=== PATIENT | male | born 1945 | race Caucasian/White ===

== ENCOUNTER 2017-03-22 11:19 | Outpatient (CLI) | payer MEDICARE ==
[~2017-03-22] VITALS: Ht 177.8 cm; Wt 115.2 kg
[~2017-03-22 11:19] MED LIST: AC325T PO; ALPR.25T PO; AMLO10TA2 PO; AMLO10TA82 PO; AMLO5TAB2 PO; ASP81TEC PO; ASPI-999 PO; CIPR-17 PO; CLOP75TA PO; CYCL10TA9 PO; FLEXERIL PO; FURO20TA4 PO; HYDR-3583 PO; HYDR-3812 PO; HYDR1TAB PO; IRB150T PO; LISI-556 PO; MELA1TAB11 PO; METO-272 PO; METO100T2 PO; METO200T2 PO; METO50TA2 PO; METO50TA7 PO; METR500T PO; MTP50T PO; MULT-608 PO; NAPR550T PO; NF-ESOM40C PO; NTR.4SL SL; OMG1KC PO; OXYC1TAB16 PO; PNT40TEC PO; RT-COMBINH IH; SIMV40TA4 PO; TRIA1CAP4 PO; TRM50T PO; WARF7.5T PO; WRF5T PO; ZLP10T PO
[2017-03-22 11:27] VITALS: BP 137/89
[2017-03-22] MEDS ORDERED: ASPI-586 PO (11:33)
[2017-03-22] MEDS ORDERED: OMEP40CA36 PO (11:33)
== END 2017-03-22 11:45 | disposition home or self-care (01) ==
LOC: PREOP 11:19
PROVIDERS: ATTEND Orthopaedic Surgery
DX: Z01.818 Encounter for other preprocedural examination (principal); G56.02 Carpal tunnel syndrome, left upper limb; Z11.2 Encounter for screening for other bacterial diseases
CPT/HCPCS: 87081

== ENCOUNTER 2017-03-28 08:21 | Day surgery (SDC) | payer MEDICARE ==
--- NOTE | 2017-03-20 10:30 | HISTORY AND PHYSICAL ---
DATE OF SERVICE: 03/28/2017 REASON FOR ADMISSION: Left carpal tunnel release. HISTORY OF PRESENT ILLNESS: The patient is a 71-year-old right-hand dominant gentleman with complaints of left hand pain and paresthesias. He underwent EMG and nerve conduction studies which revealed evidence of severe carpal tunnel syndrome with denervation of his abductor pollicis brevis. He reports near constant paresthesias. He reports night pain. He reports no improvement with activity modifications. The patient understands carpal tunnel release may not fully alleviate all of his symptoms due to the severity of his findings. REVIEW OF SYSTEMS: No chest pain, no shortness of breath, no dysuria. PAST MEDICAL HISTORY: coronary artery disease, reflux, hypertension. PAST SURGICAL HISTORY: Lumbar, coronary stent placement, coronary artery bypass, pacemaker placement, cataract. FAMILY HISTORY: COPD. PRIMARY CARE PROVIDER: . MEDICATIONS: Omeprazole, metoprolol, amlodipine, furosemide, aspirin, fish oil, simvastatin, clopidogrel and Nitrostat. ALLERGIES: PENICILLIN, SULFA and ALPHAGAN. SOCIAL HISTORY: The patient is a former smoker. Denies alcohol use. PHYSICAL EXAMINATION: GENERAL: The patient is well-developed, well-nourished, in no acute distress. HEENT: Normocephalic, atraumatic. Pupils are equal, round and reactive to light. Oropharynx is clear. NECK: Supple. No lymphadenopathy. LUNGS: Clear to auscultation bilaterally. HEART: Regular rate and rhythm. ABDOMEN: Soft, nontender, nondistended. EXTREMITIES: The left wrist demonstrates a positive Tinel's with carpal tunnel with a positive Phalen's maneuver. He has decreased sensation to light touch in the median distribution with thenar atrophy noted. He has weakness with thumb palmar abduction. IMPRESSION: Severe left carpal tunnel syndrome. PLAN: Left carpal tunnel release. The risks, benefits, options, ramifications and recovery have been discussed at length with the patient. He understands and wishes to proceed. Job ID: [id number] DocumentID: [id number] Dictated Date: 03/20/2017 09:27:06 Fitness Consultant Date: 03/20/2017 10:17:19 Dictated By: ALVIN FORBES MD
[~2017-03-28] VITALS: Ht 177.8 cm; Wt 115.2 kg
[~2017-03-28 08:21] MED LIST changes: +ASPI-586 PO; +OMEP40CA36 PO
[2017-03-28] MEDS ORDERED: LACTATED RINGERS 1,000 ML IV PRN ×2 (08:31→08:43)
[2017-03-28] MEDS ORDERED: CATHETER FLUSH 10 ML SYR IV PRN (09:00)
[2017-03-28] MEDS ORDERED: CLINDAMYCIN 600 MG/NS 50 ML IVPB IV ONE ×2 (09:00)
--- NOTE | 2017-03-28 09:01 | Progress Note-Pre Operative ---
Pre-Operative Progress Note H&P Reviewed The H&P was reviewed, patient examined and no changes noted. Date Seen by Provider: Mar 28, 2017 Time Seen by Provider: 09:00 Date H&P Reviewed: Mar 28, 2017 Time H&P Reviewed: 09:00 Pre-Operative Diagnosis: left carpal tunnel syndrome ALVIN FORBES MD Mar 28, 2017 09:01
--- NOTE | 2017-03-28 09:02 | Progress Note-Post Operative ---
Post-Operative Progess Note Surgeon (s)/Heddler (s) Surgeon ALVIN FORBES MD Heddler: Jaciel Arora Pre-Operative Diagnosis left carpal tunnel syndrome Post-Operative Diagnosis left carpal tunnel syndrome Procedure & Operative Findings Date of Procedure 03/28/17 Procedure Performed/Findings left open carpal tunnel release Anesthesia Type MAC plus local Estimated Blood Loss Estimated blood loss (mL): minimal Specimens/Packing Specimens Removed none Packing: none ALVIN FORBES MD Mar 28, 2017 09:02
[2017-03-28] MEDS ORDERED: HYDROcodone/APAP 7.5 MG/325 MG (LORTAB, LORCET PLUS) TABLET PO PRN (09:15)
[2017-03-28] MEDS ORDERED: LIDOCAINE 1% INJ 20 ML (XYLOCAINE) VIAL ONE (09:18)
[2017-03-28] MEDS ORDERED: BUPIVACAINE 0.5% 30 ML (SENSORCAINE) VIAL ONE (09:18)
[2017-03-28] MEDS ORDERED: proPOfol 200 MG/20 ML (DIPRIVAN) VIAL IV ONE (09:19)
[2017-03-28] MEDS ORDERED: fentaNYL INJECTION 100 MCG/2 ML AMP ONE (09:25)
[2017-03-28] MEDS ORDERED: LIDOCAINE PF 2% 5 ML (XYLOCAINE) VIAL ONE (09:25)
[2017-03-28 09:30] VITALS: BP 148/90
[2017-03-28] MEDS ORDERED: ONDANSETRON 4 MG/2 ML (SDV) Z0FRAN IVP PRN (10:15)
[2017-03-28] MEDS ORDERED: morphine INJ 10 MG/ML 1ML (SYR OR VIAL) IVP PRN (10:15)
[2017-03-28 10:35] VITALS: BP 137/88
[2017-03-28 11:05] VITALS: BP 121/77
[2017-03-28] MEDS ORDERED: HYDR-3816 PO (11:12)
--- NOTE | 2017-03-28 14:08 | OPERATIVE REPORT ---
DATE OF SERVICE: 03/28/2017 PREOPERATIVE DIAGNOSIS: Left carpal tunnel syndrome. POSTOPERATIVE DIAGNOSIS: Left carpal tunnel syndrome. PROCEDURE PERFORMED: Left open carpal tunnel release. SURGEON: Alvin German MD SOLID SURFACE FABRICATOR: RUPALI Hernandez, who assisted throughout the procedure and closed the incision. ANESTHESIA: Monitored anesthesia care plus local by Kermit Slater CRNA. TOURNIQUET TIME: 3 minutes at 250 mmHg. ESTIMATED BLOOD LOSS: Minimal. DRAINS: None. COMPLICATIONS: None. POSTOPERATIVE PLAN: Routine protocol. The patient was transported to the recovery room awake and in stable condition. STATEMENT OF MEDICAL NECESSITY: The patient is a 71-year-old gentleman with complaints of left hand pain and paresthesias. He had positive Tinel's of carpal tunnel and positive Phalen's maneuver. He had decreased sensation in a median distribution with thenar atrophy noted. The patient was counseled that he may not regain full function despite surgical intervention, but due to failure to improve with conservative measures, the patient elected to proceed with surgical intervention. DESCRIPTION OF PROCEDURE: After risks and benefits of the procedure were discussed and questions were answered and informed consent was signed and placed on the chart, the operative site was confirmed in the preoperative holding area and initialed by the surgeon. The patient was then transported to the operating room and after adequate levels of monitored anesthesia care were obtained, a timeout was called confirming the operative site. Under sterile conditions, the incision site was infiltrated with a combination of plain lidocaine and plain Marcaine. With the arm elevated, the tourniquet was inflated to 250 mmHg. A standard incision was made in line with the radial border of the ring finger over the transverse carpal ligament. The underlying soft tissues were sharply dissected. The transverse carpal ligament was identified and sharply incised by pushing through with a scalpel blade while carefully protecting the median nerve. The distal extent was confirmed, fully released with a Tatum. Proximally, the transverse carpal ligament was spread above and below with dissection scissors and then released while protecting median nerve. This was confirmed, fully released with a Tatum. The tourniquet was deflated for a total tourniquet time of 3 minutes. Pressure was used for hemostasis. The wound was copiously irrigated and closed with 4-0 nylon in a running alternating horizontal mattress fashion. A soft dressing and splint were applied, and the patient was transported to the recovery room awake and in stable condition. Job ID: [id number] DocumentID: [id number] Dictated Date: 03/28/2017 10:03:11 Shoder Filler Date: 03/28/2017 14:08:18 Dictated By: ALVIN GERMAN MD
--- OUTSIDE RECORDS SUMMARY | 2017-03-29 18:09 | XMS REPORT | Continuity of Care Document ---
Author Author [facility] Organization [facility] Address Unknown Phone Unavailable Allergies Active Description Code Type Severity Reaction Onset Reported/Identified Relationship to Patient Clinical Status Yes Penicillins [id number] Drug Allergy Moderate N/A 02/28/2011 Yes Sulfa (Sulfonamide Antibiotics) [id number] Drug Allergy Moderate HIVES 02/28/2011 Yes brimonidine tartrate [id number] Drug Allergy Unknown N/A 05/28/2014 Medications Problems Date Dx Coded Attending Type Code Diagnosis Diagnosed By 09/06/1305 LARON HUTCHISON MD Ot Z48.812 09/06/1305 LARON HUTCHISON MD Ot Z95.5 03/01/2011 Ot 272.4 03/01/2011 Ot 327.23 03/01/2011 Ot 365.9 03/01/2011 Ot 401.9 03/01/2011 Ot 412 03/01/2011 Ot 414.01 03/01/2011 Ot 722.52 03/01/2011 Ot V12.72 03/01/2011 Ot V58.78 03/01/2011 Ot V63.8 09/26/2011 Ot 414.01 09/26/2011 Ot 426.13 09/26/2011 Ot 786.50 09/26/2011 Ot V45.82 09/26/2011 Ot V58.63 09/26/2011 Ot V58.66 09/26/2011 Ot V58.69 10/11/2011 Ot 272.4 HYPERLIPIDEMIA NEC/NOS 10/11/2011 Ot 401.9 HYPERTENSION NOS 10/11/2011 Ot 414.01 CORONARY ATHEROSCLEROSIS OF [place] CORON 10/11/2011 Ot 424.0 MITRAL VALVE DISORDER 10/11/2011 Ot 426.11 ATRIOVENT BLOCK-1ST DEGR 10/11/2011 Ot 426.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 10/11/2011 Ot 441.2 THORACIC AORTIC ANEURYSM 10/11/2011 Ot 530.81 ESOPHAGEAL REFLUX 10/11/2011 Ot 786.59 CHEST PAIN NEC 10/11/2011 Ot V15.82 HISTORY OF TOBACCO USE 10/11/2011 Ot V45.82 PERCUTANEOUS TRANSLUM CORON ANGIOPLASTY 10/11/2011 Ot V58.63 LONG-TERM(CURRENT)USE OF ANTIPLATELET/AN 10/11/2011 Ot V58.66 LONG-TERM (CURRENT) USE OF ASPIRIN 10/11/2011 Ot V58.69 OTH MED,LT,CURRENT USE 01/08/2012 Ot 272.4 HYPERLIPIDEMIA NEC/NOS 01/08/2012 Ot 401.9 HYPERTENSION NOS 01/08/2012 Ot 414.00 CORON ATHEROSCLER NOS TYPE VESSEL, NATIV 01/08/2012 Ot 427.89 CARDIAC DYSRHYTHMIAS NEC 01/08/2012 Ot 433.10 CAROTID ARTERY OCCLUSION W O CEREBRAL IN 01/08/2012 Ot 530.81 ESOPHAGEAL REFLUX 01/08/2012 Ot 998.31 DISRUPTION OF INTERNAL OPERATION (SURGIC 01/08/2012 Ot V12.51 HX-VENOUS THROMBOSIS EMBOLISM 01/08/2012 Ot V12.55 PERSONAL HISTORY OF PULMONARY EMBOLISM 01/08/2012 Ot V45.81 AORTOCORONARY BYPASS 01/16/2012 Ot 272.4 HYPERLIPIDEMIA NEC/NOS 01/16/2012 Ot 401.9 HYPERTENSION NOS 01/16/2012 Ot 414.00 CORON ATHEROSCLER NOS TYPE VESSEL, NATIV 01/16/2012 Ot 785.1 PALPITATIONS 01/16/2012 Ot 786.50 CHEST PAIN NOS 01/16/2012 Ot 789.59 OTHER ASCITES 01/16/2012 Ot V45.01 CARDIAC PACEMAKER IN SITU 01/16/2012 Ot V45.81 AORTOCORONARY BYPASS 01/16/2012 Ot V58.61 ANTICOAGULANTS,LT,CURRENT USE 01/16/2012 Ot V58.69 OTH MED,LT,CURRENT USE 03/21/2012 Ot V45.81 AORTOCORONARY BYPASS 03/21/2012 Ot V57.89 REHABILITATION PROC NEC 05/03/2012 Ot 524.60 TEMPOROMANDIBULAR JOINT DISORDERS, UNSPE 05/03/2012 Ot 784.92 JAW PAIN 05/10/2012 Ot V45.81 AORTOCORONARY BYPASS 05/10/2012 Ot V57.89 REHABILITATION PROC NEC 06/09/2014 HILLARY PACHECO FACC, SILVIA PRITCHARD CCDS Ot 272.4 HYPERLIPIDEMIA NEC/NOS 06/09/2014 HILLARY PACHECO FACC, ALI FACP CCDS Ot 414.01 CORONARY ATHEROSCLEROSIS OF [place] [address] CORON 06/09/2014 HILLARY PACHECO FACC, ALI FACP CCDS Ot 414.02 CORON ATHEROSCLEROSIS AUTOLOG VEIN BYPAS 06/09/2014 SILVIA THORNTON MD, FACC FACP CCDS Ot 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 06/09/2014 SILVIA THORNTON MD, FACC FACP CCDS Ot 414.4 CORONARY ATHEROSCLEROSIS DUE TO [place] 06/09/2014 SILVIA THORNTON MD, FACC FACP CCDS Ot 780.79 OT MALAISE FATIGUE 06/09/2014 SILVIA THORNTON MD, FACC FACP CCDS Ot V45.01 CARDIAC PACEMAKER IN SITU 06/09/2014 SILVIA THORNTON MD, FACC FACP CCDS Ot V45.81 AORTOCORONARY BYPASS 06/09/2014 SILVIA THORNTON MD, FACC FACP CCDS Ot V58.69 OT MED,LT,CURRENT USE 09/01/2015 SILVIA THORNTON MD, FACC FACP CCDS Ot E78.5 HYPERLIPIDEMIA, UNSPECIFIED 09/01/2015 ISLVIA THORNTON MD, FACC FACP CCDS Ot I10 ESSENTIAL (PRIMARY) HYPERTENSION 09/01/2015 SILVIA THORNTON MD, FACC FACP CCDS Ot I25.110 ATHSCL HEART DISEASE OF [place] [address] COR ART W 09/01/2015 SILVIA THORNTON MD, FACC FACP CCDS Ot I25.82 CHRONIC TOTAL OCCLUSION OF CORONARY RHODA 09/01/2015 SILVIA THORNTON MD, FACC FACP CCDS Ot 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 09/01/2015 SILVIA THORNTON MD, FACC FACP CCDS Ot Z86.711 PERSONAL HISTORY OF PULMONARY EMBOLISM 09/01/2015 HILLARY PACHECO FACC, ALI FACP CCDS Ot Z95.0 PRESENCE OF CARDIAC PACEMAKER 09/01/2015 HILLARY PACHECO FACC, ALI FACP CCDS Ot Z95.1 PRESENCE OF AORTOCORONARY BYPASS GRAFT 11/03/2015 LARON HUTCHISON MD Ot Z48.812 11/03/2015 LARON HUTCHISON MD Ot Z95.5 11/04/2015 LARON HUTCHISON MD Ot Z48.812 11/04/2015 LARON HUTCHISON MD Ot Z95.5 12/23/2015 LARON HUTCHISON MD Ot Z48.812 ENCNTR FOR SURGICAL AFTCR FOLLOWING SURG 12/23/2015 FOSTER PACHECO, LARON Mora Ot Z95.5 PRESENCE OF CORONARY ANGIOPLASTY IMPLANT 12/24/2015 FOSTER PACHECO, LARON Mora Ot Z48.812 12/24/2015 FOSTER PACHECO, LARON Mora Ot Z95.5 12/24/2015 FOSTER PACHECO, LARON Mora Ot Z48.812 12/24/2015 LARON HUTCHISON MD Ot Z95.5 12/24/2015 Ot 414.01 12/24/2015 Ot 786.50 12/24/2015 Ot V58.63 12/24/2015 Ot V58.66 12/24/2015 Ot V58.69 12/24/2015 Ot V72.63 12/24/2015 Ot V72.81 12/24/2015 Ot V45.81 12/24/2015 Ot V57.89 12/24/2015 GIOVANNA CARRILLO ELEVATOR ERECTOR HELPER Ot 401.9 12/24/2015 GIOVANNA CARRILLO ELEVATOR ERECTOR HELPER Ot 414.00 12/24/2015 GIOVANNA CARRILLO L ELEVATOR ERECTOR HELPER Ot 424.1 12/24/2015 GIOVANNA CARRILLO L ELEVATOR ERECTOR HELPER Ot 441.2 12/24/2015 GIOVANNA CARRILLO ELEVATOR ERECTOR HELPER Ot V45.01 12/24/2015 HILLARY PACHECO FACC, ALI FACP CCDS Ot 272.4 12/24/2015 HILLARY PACHECO FACC, ALI FACP CCDS Ot 401.9 12/24/2015 HILLARY PACHECO FACC, ALI FACP CCDS Ot 414.00 12/24/2015 HILLARY PACHECO FACC, ALI FACP CCDS Ot 426.11 12/24/2015 HILLARY PACHECO FACC, ALI FACP CCDS Ot 426.52 12/24/2015 HILLARY PACHECO FACC, ALI FACP CCDS Ot 429.3 12/24/2015 HILLARY PACHECO FACC, ALI FACP CCDS Ot 441.2 12/24/2015 HILLARY PACHECO FACC, ALI FACP CCDS Ot V45.01 12/24/2015 LARON HUTCHISON MD Ot Z48.812 12/24/2015 LARON HUTCHISON MD Ot Z95.5 12/24/2015 LARON HUTCHISON MD Ot Z48.812 12/24/2015 FOSTER PACHECO, LARON Mora Ot Z95.5 12/29/2015 FOSTER PACHECO, LARON Mora Ot Z48.812 12/29/2015 FOSTER PACHECO, LARON Mora Ot Z95.5 01/04/2016 FOSTER PACHECO, LARON Mora Ot Z48.812 01/04/2016 LARON HUTCHISON MD Ot Z95.5 01/12/2016 LARON HUTCHISON MD Ot Z48.812 ENCNTR FOR SURGICAL AFTCR FOLLOWING SURG 01/12/2016 FOSTER PACHECO, LARON Mora Ot Z95.5 PRESENCE OF CORONARY ANGIOPLASTY IMPLANT 01/14/2016 GERARDO GIOVANNA L ELEVATOR ERECTOR HELPER Ot E78.4 01/14/2016 BAISTAN GIOVANNA L ELEVATOR ERECTOR HELPER Ot I25.10 01/14/2016 BAIMA, GIOVANNA L ELEVATOR ERECTOR HELPER Ot I35.8 01/14/2016 BAIMA, GIOVANNA L ELEVATOR ERECTOR HELPER Ot I71.2 02/02/2016 BAIMA, GIOVANNA L ELEVATOR ERECTOR HELPER Ot E78.4 OTHER HYPERLIPIDEMIA 02/02/2016 BAIMA GIOVANNA L ELEVATOR ERECTOR HELPER Ot I25.10 ATHSCL HEART DISEASE OF [place] CORONARY 02/02/2016 BAIMA, GIOVANNA L ELEVATOR ERECTOR HELPER Ot I35.8 OTHER NONRHEUMATIC AORTIC VALVE DISORDER 02/02/2016 BAIMA, GIOVANNA L ELEVATOR ERECTOR HELPER Ot I71.2 THORACIC AORTIC ANEURYSM, WITHOUT RUPTUR 02/09/2016 BAIMA, GIOVANNA L ELEVATOR ERECTOR HELPER Ot E78.4 OTHER HYPERLIPIDEMIA 02/09/2016 BAIMA, GIOVANNA L ELEVATOR ERECTOR HELPER Ot I25.10 ATHSCL HEART DISEASE OF [place] [address] CORONARY 02/09/2016 BAIMA GIOVANNA L ELEVATOR ERECTOR HELPER Ot I35.8 OTHER NONRHEUMATIC AORTIC VALVE DISORDER 02/09/2016 BAIMA, GIOVANNA L ELEVATOR ERECTOR HELPER Ot I71.2 THORACIC AORTIC ANEURYSM, WITHOUT RUPTUR 02/16/2016 BAIMA, GIOVANNA L ELEVATOR ERECTOR HELPER Ot E78.4 OTHER HYPERLIPIDEMIA 02/16/2016 BAIMA, GIOVANNA L ELEVATOR ERECTOR HELPER Ot I10 ESSENTIAL (PRIMARY) HYPERTENSION 02/16/2016 BAIMA, GIOVANNA L ELEVATOR ERECTOR HELPER Ot I25.10 ATHSCL HEART DISEASE OF [place] [address] CORONARY 02/16/2016 BAIMA GIOVANNA L ELEVATOR ERECTOR HELPER Ot I71.2 THORACIC AORTIC ANEURYSM, WITHOUT RUPTUR 02/16/2016 BAIMA, GIOVANNA L ELEVATOR ERECTOR HELPER Ot R07.9 CHEST PAIN, UNSPECIFIED 02/16/2016 BAIMA, GIOVANNA L ELEVATOR ERECTOR HELPER Ot Z95.0 PRESENCE OF CARDIAC PACEMAKER 03/15/2016 BAIMA, GIOVANNA L ELEVATOR ERECTOR HELPER Ot E78.4 OTHER HYPERLIPIDEMIA 03/15/2016 BAIMA, GIOVANNA L ELEVATOR ERECTOR HELPER Ot I10 ESSENTIAL (PRIMARY) HYPERTENSION 03/15/2016 BAIMA, GIOVANNA L ELEVATOR ERECTOR HELPER Ot I25.10 ATHSCL HEART DISEASE OF [place] [address] CORONARY 03/15/2016 BAIMA, GIOVANNA L ELEVATOR ERECTOR HELPER Ot I71.2 THORACIC AORTIC ANEURYSM, WITHOUT RUPTUR 03/15/2016 BAIMA, GIOVANNA L ELEVATOR ERECTOR HELPER Ot R07.9 CHEST PAIN, UNSPECIFIED 03/15/2016 BAIMA, GIOVANNA L ELEVATOR ERECTOR HELPER Ot Z95.0 PRESENCE OF CARDIAC PACEMAKER 03/17/2016 BAIMA, GIOVANNA L ELEVATOR ERECTOR HELPER Ot E78.4 OTHER HYPERLIPIDEMIA 03/17/2016 BAIMA, GIOVANNA L ELEVATOR ERECTOR HELPER Ot I10 ESSENTIAL (PRIMARY) HYPERTENSION 03/17/2016 BAIMA, GIOVANNA L ELEVATOR ERECTOR HELPER Ot I25.10 ATHSCL HEART DISEASE OF [place] [address] CORONARY 03/17/2016 BAIMA, GIOVANNA L ELEVATOR ERECTOR HELPER Ot I71.2 THORACIC AORTIC ANEURYSM, WITHOUT RUPTUR 03/17/2016 BAIMA, GIOVANNA L ELEVATOR ERECTOR HELPER Ot R07.9 CHEST PAIN, UNSPECIFIED 03/17/2016 BAIMA, GIOVANNA L ELEVATOR ERECTOR HELPER Ot Z95.0 PRESENCE OF CARDIAC PACEMAKER 03/22/2017 Ot V45.81 AORTOCORONARY BYPASS 03/22/2017 Ot V57.89 REHABILITATION PROC NEC 03/22/2017 BAIMA, GIOVANNA L ELEVATOR ERECTOR HELPER Ot 401.9 HYPERTENSION NOS 03/22/2017 BAIMA, GIOVANNA L ELEVATOR ERECTOR HELPER Ot 414.00 CORON ATHEROSCLER NOS TYPE VESSEL, NATIV 03/22/2017 BAIMA, GIOVANNA L ELEVATOR ERECTOR HELPER Ot 424.1 AORTIC VALVE DISORDER 03/22/2017 BAIMA, GIOVANNA L ELEVATOR ERECTOR HELPER Ot 441.2 THORACIC AORTIC ANEURYSM 03/22/2017 BAIMA, GIOVANNA L ELEVATOR ERECTOR HELPER Ot V45.01 CARDIAC PACEMAKER IN SITU 03/22/2017 HILLARY PACHECO FACC, SILVIA PRITCHARD CCDS Ot 272.4 HYPERLIPIDEMIA NEC/NOS 03/22/2017 HILLARY PACHECO FACC, SILVIA JONESP CCDS Ot 401.9 HYPERTENSION NOS 03/22/2017 HILLARY PACHECO FACC, ALI FACP CCDS Ot 414.00 CORON ATHEROSCLER NOS TYPE VESSEL, NATIV 03/22/2017 HILLARY PACHECO FACC, SILVIA FACP CCDS Ot 426.11 ATRIOVENT BLOCK-1ST DEGR 03/22/2017 HILLARY PAHCECO FACC, SILVIA FACP CCDS Ot 426.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 03/22/2017 HILLARY PACHECO FACC, ALI FACP CCDS Ot 429.3 CARDIOMEGALY 03/22/2017 HILLARY PACHECO FACC, SILVIA FACP CCDS Ot 441.2 THORACIC AORTIC ANEURYSM 03/22/2017 HILLARY PACHECO FACC, SILVIA FACP CCDS Ot V45.01 CARDIAC PACEMAKER IN SITU 03/22/2017 BAIMA, GIOVANNA L ELEVATOR ERECTOR HELPER Ot E78.4 OTHER HYPERLIPIDEMIA 03/22/2017 BAIMA, GIOVANNA L ELEVATOR ERECTOR HELPER Ot I25.10 ATHSCL HEART DISEASE OF [place] [address] CORONARY 03/22/2017 BAIMA, GIOVANNA L ELEVATOR ERECTOR HELPER Ot I35.8 OTHER NONRHEUMATIC AORTIC VALVE DISORDER 03/22/2017 BAIMA, GIOVANNA L ELEVATOR ERECTOR HELPER Ot I71.2 THORACIC AORTIC ANEURYSM, WITHOUT RUPTUR 03/22/2017 BAIMA, GIOVANNA L ELEVATOR ERECTOR HELPER Ot E78.4 OTHER HYPERLIPIDEMIA 03/22/2017 BAIMA, GIOVANNA L ELEVATOR ERECTOR HELPER Ot I10 ESSENTIAL (PRIMARY) HYPERTENSION 03/22/2017 BAIMA, GIOVANNA L ELEVATOR ERECTOR HELPER Ot I25.10 ATHSCL HEART DISEASE OF [place] [address] CORONARY 03/22/2017 BAIMA, GIOVANNA L ELEVATOR ERECTOR HELPER Ot I71.2 THORACIC AORTIC ANEURYSM, WITHOUT RUPTUR 03/22/2017 BAIMA, GIOVANNA L ELEVATOR ERECTOR HELPER Ot R07.9 CHEST PAIN, UNSPECIFIED 03/22/2017 BAIMA, GIOVANNA L ELEVATOR ERECTOR HELPER Ot Z95.0 PRESENCE OF CARDIAC PACEMAKER Procedures Results Test Result Range Methicillin resistant Staphylococcus aureus (MRSA) screening culture - 11:46 MRSA SCREEN RESULT MRSA ISOLATED NRG Encounters ACCT No. Visit Date/Time Discharge Status Pt. Type Provider Facility Loc./Unit Complaint [id number] 03/22/2017 11:19:00 2016 11:45:00 DIS Outpatient LEIDY PACHECO, ALVIN [facility] PREOP LEFT CARPAL TUNNEL SYNDROME [id number] 01/12/2016 11:56:00 2015 13:06:00 DIS Outpatient LARON HUTCHISON MD [facility] CR STENT [id number] 12/20/2015 07:56:00 2015 00:01:00 DIS Outpatient LARON HUTCHISON MD [facility] CR STENT [id number] 08/31/2015 09:39:00 2014 11:45:00 DIS Outpatient HILLARY PACHECO FACNa, SILVIA PRITCHARD CCDS [facility] CATH CAD,HTN,HYPERLIPIDEMIA, CHEST PAIN [id number] 06/09/2014 06:53:00 2013 16:30:00 DIS Outpatient HILLARY PACEHCO FACC, SILVIA PRITCHARD CCDS [facility] ABNORMAL STRESS,CAD,HLP [id number] 05/28/2014 07:19:00 2013 23:59:59 CLS Outpatient SILVIA THORNTON MD, FACC, FACP CCDS [facility] CARD CAD,HLP [id number] 04/03/2014 12:30:00 2013 23:59:59 CLS Outpatient BAIMA, GIOVANNA L ELEVATOR ERECTOR HELPER [facility] CARD CAD,HLP, [id number] 03/28/2017 10:30:00 IZABELA FORBES MD, ALVIN [place] [facility] LEFT CARPAL TUNNEL SYNDROME [id number] 02/15/2016 07:18:00 ACT Outpatient BAIMA, GIOVANNA L ELEVATOR ERECTOR HELPER [facility] CARD CHEST PAIN,CAD,CARDIAC PACEMAKER,HLP,LABILE HTN [id number] 01/13/2016 07:21:00 ACT Outpatient BAIMA, GIOVANNA L ELEVATOR ERECTOR HELPER [facility] CARD CAD,AORTIC VALVE SCLEROSIS [id number] 05/10/2012 11:55:00 Document Registration [id number] 05/03/2012 08:02:00 Document Registration [id number] 03/22/2012 08:00:00 Document Registration [id number] 03/18/2012 11:53:00 Document Registration [id number] 01/16/2012 14:58:00 Document Registration [id number] 01/08/2012 10:00:00 Document Registration [id number] 10/11/2011 08:12:00 Document Registration [id number] 09/26/2011 05:29:00 Document Registration [id number] 09/25/2011 08:22:00 Document Registration [id number] 02/27/2011 00:08:00 Document Registration
== END 2017-03-28 11:39 | disposition home or self-care (01) ==
LOC: SDC 08:21
PROVIDERS: ATTEND Orthopaedic Surgery
DX: G56.02 Carpal tunnel syndrome, left upper limb (principal); Z11.2 Encounter for screening for other bacterial diseases; I25.10 Atherosclerotic heart disease of native coronary artery without angina pectoris; K21.9 Gastro-esophageal reflux disease without esophagitis; I10 Essential (primary) hypertension; E78.5 Hyperlipidemia, unspecified; Z95.1 Presence of aortocoronary bypass graft; Z95.0 Presence of cardiac pacemaker; Z95.5 Presence of coronary angioplasty implant and graft; Z79.891 Long term (current) use of opiate analgesic
CPT/HCPCS: 87081

== ENCOUNTER 2017-08-02 08:16 | Outpatient (CLI) | payer MEDICARE ==
[~2017-08-02] VITALS: Ht 177.8 cm; Wt 116.1 kg
[~2017-08-02 08:16] MED LIST changes: +HYDR-3816 PO
[2017-08-02] MEDS ORDERED: CLOP75TA28 PO (08:30)
[2017-08-02] MEDS ORDERED: FURO20TA4 PO (08:30)
[2017-08-02] MEDS ORDERED: OMG1KC PO (08:30)
[2017-08-02] MEDS ORDERED: NITR0.4T39 SL (08:30)
[2017-08-02] MEDS ORDERED: MULT1CAP27 PO (08:30)
[2017-08-02] MEDS ORDERED: METO50TA2 PO (08:30)
[2017-08-02] MEDS ORDERED: SIMV40TA4 PO (08:30)
[2017-08-02 08:34] VITALS: BP 142/83
== END 2017-08-02 10:09 | disposition home or self-care (01) ==
LOC: PREOP 08:16
PROVIDERS: ATTEND Orthopaedic Surgery
DX: Z01.818 Encounter for other preprocedural examination (principal); G56.01 Carpal tunnel syndrome, right upper limb
CPT/HCPCS: 87081

== ENCOUNTER 2017-08-08 06:00 | Day surgery (SDC) | payer MEDICARE ==
--- NOTE | 2017-07-31 12:58 | HISTORY AND PHYSICAL ---
DATE OF SERVICE: This is for outpatient surgery on 08/08/2017 for the right carpal tunnel release. HISTORY OF PRESENT ILLNESS: The patient is a 72-year-old right hand dominant gentleman with complaints of right hand pain and paresthesias. He underwent an EMG and nerve conduction study, which revealed evidence of severe carpal tunnel syndrome. He reports near-constant paresthesias. He reports night pain. He reports no improvement with activity modifications. Due to functional impairment, the patient would like to proceed with surgical intervention. REVIEW OF SYSTEMS: No chest pain, no shortness of breath, no dysuria. PAST MEDICAL HISTORY: Coronary artery disease, reflux and hypertension. PAST SURGICAL HISTORY: Lumbar, coronary stent placement, coronary artery bypass, pacemaker placement, cataract. FAMILY HISTORY: COPD. MEDICATIONS: Omeprazole, metoprolol, amlodipine, furosemide, aspirin, fish oil, simvastatin, clopidogrel, Nitrostat. ALLERGIES: PENICILLIN, SULFA and ALPHAGAN. SOCIAL HISTORY: The patient is a former smoker. Denies alcohol use. PHYSICAL EXAMINATION: GENERAL: The patient is well developed, well nourished, in no acute distress. HEENT: Normocephalic, atraumatic. Pupils are equal, round and reactive to light. Oropharynx is clear. NECK: Supple, no lymphadenopathy. LUNGS: Clear to auscultation. HEART: Regular rate and rhythm. ABDOMEN: Soft, nontender, nondistended. EXTREMITIES: The right upper extremity demonstrates positive Tinel's with carpal tunnel. Positive Phalen's maneuver. There is thenar atrophy noted with decreased sensation in the median distribution. IMPRESSION: Right carpal tunnel syndrome. PLAN: Right carpal tunnel release. The risks, benefits, options, ramifications and recovery were discussed at length with the patient. He understands and wishes to proceed. Job ID: [id number] DocumentID: [id number] Dictated Date: 07/31/2017 08:09:06 Student Services Advisor Date: 07/31/2017 08:51:17 Dictated By: ALVIN FORBES MD
[~2017-08-08] VITALS: Ht 177.8 cm; Wt 116.1 kg
[2017-08-08 06:00] VITALS: BP 158/91
[~2017-08-08 06:00] MED LIST changes: +CLOP75TA28 PO; +MULT1CAP27 PO; +NITR0.4T39 SL
[2017-08-08] MEDS ORDERED: PROPOFOL INJECTION 50 ML IV ONE (06:35)
[2017-08-08] MEDS ORDERED: fentaNYL INJECTION 100 MCG/2 ML AMP ONE (06:35)
[2017-08-08] MEDS ORDERED: ONDANSETRON 4 MG/2 ML (SDV) Z0FRAN ONE (06:36)
[2017-08-08] MEDS ORDERED: MIDAZOLAM 2 MG/2 ML (VERSED) VIAL ONE (06:36)
[2017-08-08] MEDS ORDERED: LACTATED RINGERS 1,000 ML IV PRN (06:47)
[2017-08-08] MEDS ORDERED: ceFAZolin 2 GM/NS 50 ML IV ONE (07:00)
[2017-08-08] MEDS ORDERED: CATHETER FLUSH 10 ML SYR IV PRN (07:00)
[2017-08-08] MEDS ORDERED: LIDOCAINE 1% INJ 20 ML (XYLOCAINE) VIAL ONE (07:02)
[2017-08-08] MEDS ORDERED: BUPIVACAINE 0.5% 30 ML (SENSORCAINE) VIAL ONE (07:02)
--- NOTE | 2017-08-08 07:20 | Progress Note-Pre Operative ---
Pre-Operative Progress Note H&P Reviewed The H&P was reviewed, patient examined and no changes noted. Date Seen by Provider: Aug 08, 2017 Time Seen by Provider: 07:11 Date H&P Reviewed: Aug 08, 2017 Time H&P Reviewed: 07:11 Pre-Operative Diagnosis: right carpal tunnel syndrome ALVIN FORBES MD Aug 08, 2017 07:20
--- NOTE | 2017-08-08 07:21 | Progress Note-Post Operative ---
Post-Operative Progess Note Surgeon (s)/Pupil Personnel Services Director (s) Surgeon ALVIN FORBES MD Pupil Personnel Services Director: Jaciel Arora Pre-Operative Diagnosis right carpal tunnel syndrome Post-Operative Diagnosis right carpal tunnel syndrome Procedure & Operative Findings Date of Procedure 08/08/17 Procedure Performed/Findings right open carpal tunnel release Anesthesia Type MAC plus local Estimated Blood Loss Estimated blood loss (mL): minimal Specimens/Packing Specimens Removed none Packing: none ALVIN FORBES MD Aug 08, 2017 07:21
[2017-08-08] MEDS ORDERED: ceFAZolin 1,000 MG (ANCEF) VIAL ONE (07:22)
[2017-08-08] MEDS ORDERED: NS (IVPB) 50 ML ONE (07:22)
[2017-08-08] MEDS ORDERED: HYDROcodone/APAP 7.5 MG/325 MG (LORTAB, LORCET PLUS) TABLET PO PRN (07:45)
[2017-08-08] MEDS ORDERED: ONDANSETRON 4 MG/2 ML (SDV) Z0FRAN IVP PRN (08:15)
[2017-08-08] MEDS ORDERED: morphine INJ 10 MG/ML 1ML (SYR OR VIAL) IVP PRN (08:15)
[2017-08-08 08:45] VITALS: BP 121/84
[2017-08-08 09:15] VITALS: BP 123/86
[2017-08-08] MEDS ORDERED: HYDR-3816 PO (09:35)
[2017-08-08 09:45] VITALS: BP 171/98
--- NOTE | 2017-08-08 09:48 | OPERATIVE REPORT ---
DATE OF SERVICE: 08/08/2017 PREOPERATIVE DIAGNOSIS: Right carpal tunnel syndrome. POSTOPERATIVE DIAGNOSIS: Right carpal tunnel syndrome. PROCEDURE: Right open carpal tunnel release. SURGEON: Joo German MD MOVER: RUPALI Hernandez, who assisted throughout the procedure and closed the incision. ANESTHESIA: Monitored anesthesia care plus local by Neil Sanders CRNA. TOURNIQUET TIME: Six minutes at 250 mmHg. ESTIMATED BLOOD LOSS: Minimal. DRAINS: None. COMPLICATIONS: None. POSTOPERATIVE PLAN: Routine protocol. The patient was transported to the recovery room, awake and in stable condition. STATEMENT OF MEDICAL NECESSITY: The patient is a 72-year-old right-hand dominant gentleman with complaints of right hand pain and paresthesias. He had a positive Tinel's at the carpal tunnel and positive Phalen's maneuver. Due to functional impairment and failure to improve with conservative measures, the patient elected to proceed with surgical intervention. DESCRIPTION OF PROCEDURE: After risks and benefits of the procedure were discussed and questions were answered and informed consent was signed and placed on the chart. The operative site was confirmed in the preoperative holding area and initialed by surgeon. The patient was transported to the operating room. After adequate levels of monitored anesthesia care were obtained, a timeout was called to confirm the operative site. Under sterile conditions, the incision site was infiltrated with a combination of plain lidocaine and plain Marcaine. The right upper extremity was then prepped and draped in the usual sterile fashion. With the arm elevated, tourniquet was inflated to 250 mmHg. A longitudinal incision was made in line with the radial border of the ring finger over the transverse carpal ligament. The transverse carpal ligament was identified and sharply incised by pushing through with the scalpel blade while carefully protecting the median nerve. This was confirmed, fully released distally with the [place]. Proximally, the transverse carpal ligament spread above and below with dissection scissors and then released while protecting the median nerve with slightly open scissor edges. This was confirmed, fully released with the [place]. The tourniquet was deflated for a total tourniquet time of 6 minutes. Pressure was used for hemostasis. The wound was copiously irrigated and then closed with 4-0 nylon in a running alternating horizontal mattress fashion. A soft dressing and splint were applied and the patient was transported to the recovery room, awake and in stable condition. Job ID: [id number] DocumentID: [id number] Dictated Date: 08/08/2017 08:08:55 Game Agent Date: 08/08/2017 09:46:22 Dictated By: JOO GERMAN MD
== END 2017-08-08 09:55 | disposition home or self-care (01) ==
LOC: SDC 06:00
PROVIDERS: ATTEND Orthopaedic Surgery
DX: G56.01 Carpal tunnel syndrome, right upper limb (principal); I25.10 Atherosclerotic heart disease of native coronary artery without angina pectoris; K21.9 Gastro-esophageal reflux disease without esophagitis; I10 Essential (primary) hypertension; Z95.5 Presence of coronary angioplasty implant and graft; Z95.1 Presence of aortocoronary bypass graft; Z95.0 Presence of cardiac pacemaker; Z79.899 Other long term (current) drug therapy; Z86.718 Personal history of other venous thrombosis and embolism

== ENCOUNTER 2018-07-23 07:03 | Day surgery (SDC) | payer MEDICARE ==
[~2018-07-23] VITALS: Ht 179.1 cm; Wt 108.9 kg
[2018-07-23] VITALS (9 sets, daily range): BP systolic 113–179; BP diastolic 72–99
[~2018-07-23 07:03] MED LIST changes: +ACHD5005 PO; -AMLO10TA2 PO; +AMLO10TA6 PO; +HYDR-34 PO; -HYDR-3812 PO; -HYDR-3816 PO; -METO-272 PO; +METO-370 PO; +METO50TA15 PO; -METO50TA2 PO
--- OUTSIDE RECORDS SUMMARY | 2018-07-23 07:09 | XMS REPORT | Continuity of Care Document ---
Author Author [facility] Organization [facility] Address Unknown Phone Unavailable Allergies Active Description Code Type Severity Reaction Onset Reported/Identified Relationship to Patient Clinical Status Yes PENICILLIN G POTASSIUM PENICILLIN G POTASSI SEVERE Yes SULFAMETHOXAZOLE-TRIMETHOPRIM SULFAMETHOXAZOLE-TRI SEVERE Yes PENICILLIN G POTASSIUM SEVERE DERMATOLOGICAL - MAHI Yes SULFAMETHOXAZOLE-TRIMETHOPRIM SEVERE DERMATOLOGICAL - MAHI Yes Penicillins [id number] Drug Allergy Moderate N/A 08/02/2017 Yes Sulfa (Sulfonamide Antibiotics) [id number] Drug Allergy Moderate HIVES Yes brimonidine tartrate [id number] Drug Allergy Unknown N/A 08/02/2017 Medications Medication Packaging Start Date Stop Date Route Dosage Sig NITROGLYCERIN OINT UD OINT 2 % (NITRO-BID UD) arsen 07/17/2018 07/17/2018 ONCE&0253 Flu vacc [id number] Persons 6mo T older(PF) IM syringe/vial(Fluarix QUAD) Adult ML 07/17/2018 07/17/2018 ONCE&0458 APIXABAN TAB 5 MG (ELIQUIS) Dose(s) 07/17/2018 08/15/2018 BID&0800,2000 AMLODIPINE TAB 10 MG (NORVASC) Dose(s) 07/17/2018 08/15/2018 Daily&0900 ASPIRIN 81MG CHEWABLE TAB 81 MG (BABY ASPIRIN) Dose(s) 07/17/2018 08/15/2018 Daily&0900 METOPROLOL TAB 50 MG (LOPRESSOR) Dose(s) 07/17/2018 08/15/2018 Daily&0900 FUROSEMIDE TAB 20 MG (LASIX) Dose(s) 07/17/2018 08/15/2018 Daily&0900 FISH OIL CAP CAP 1000 MG (OMEGA 3) Dose(s) 07/17/2018 08/15/2018 Daily&0900 Sisacxdb-xiin-bbo-folic acid) tab,CHEWable (Centrum) Dose(s) 07/17/2018 08/15/2018 Daily&0900 METOPROLOL TAB 50 MG (LOPRESSOR) Dose(s) 07/17/2018 08/15/2018 QPM&2000 SIMVASTATIN TAB 40 MG (ZOCOR) Dose(s) 07/17/2018 08/15/2018 QPM&2000 Problems Date Dx Coded Attending Type Code [...] NOS 10/11/2011 Ot 414.01 CORONARY ATHEROSCLEROSIS OF [place] CORON 10/11/2011 Ot 424.0 MITRAL VALVE DISORDER 10/11/2011 Ot 426.11 ATRIOVENT BLOCK-1ST DEGR 10/11/2011 Ot 426.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 10/11/2011 Ot 441.2 THORACIC AORTIC ANEURYSM 10/11/2011 Ot 530.81 ESOPHAGEAL REFLUX 10/11/2011 Ot 786.59 CHEST PAIN NEC 10/11/2011 Ot V15.82 HISTORY OF TOBACCO USE 10/11/2011 Ot V45.82 PERCUTANEOUS TRANSLUM CORON ANGIOPLASTY 10/11/2011 Ot V58.63 LONG-TERM( CURRENT)USE OF ANTIPLATELET/AN 10/11/2011 Ot V58.66 LONG-TERM ( CURRENT) USE OF ASPIRIN 10/11/2011 Ot V58.69 OTH MED,LT, CURRENT USE 01/08/2012 Ot 272.4 HYPERLIPIDEMIA NEC/NOS 01/08/2012 [...] V58.61 ANTICOAGULANTS,LT,CURRENT USE 01/16/2012 Ot V58.69 OTH MED,LT, CURRENT USE 03/21/2012 Ot V45.81 AORTOCORONARY BYPASS 03/21/2012 Ot V57.89 REHABILITATION PROC NEC 05/03/2012 Ot 524.60 TEMPOROMANDIBULAR JOINT DISORDERS, UNSPE 05/03/2012 Ot 784.92 JAW PAIN 05/10/2012 Ot V45.81 AORTOCORONARY BYPASS 05/10/2012 Ot V57.89 REHABILITATION PROC NEC 06/09/2014 HILLARY PACHECO FACC, MAISHA JONESP CCDS Ot 272.4 HYPERLIPIDEMIA NEC/NOS 06/09/2014 HILLARY PACHECO FACC, MAISHA JONESP CCDS Ot 414.01 CORONARY ATHEROSCLEROSIS OF [place] CORON 06/09/2014 HILLARY PACHECO FACC, MAISHA JONESP CCDS Ot 414.02 CORON ATHEROSCLEROSIS AUTOLOG VEIN BYPAS 06/09/2014 HILLARY PACHECO FACC, MAISHA JONESP CCDS Ot 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 06/09/2014 HILLARY PACHECO FACC, MAISHA JONESP CCDS Ot 414.4 CORONARY ATHEROSCLEROSIS DUE TO [place] 06/09/[address] MD, FACCP CCDS Ot 780.79 OT MALAISE FATIGUE 06/09/[address] MD, FACC FACP CCDS Ot V45.01 CARDIAC PACEMAKER IN SITU 06/09/[address] MD, FACC FACP CCDS Ot V45.81 AORTOCORONARY BYPASS 06/09/[address] MD, FACC FACP CCDS Ot V58.69 OTH MED,LT,CURRENT USE 09/01/[address] MD, FACC FACP CCDS Ot E78.5 HYPERLIPIDEMIA, UNSPECIFIED 09/01/[address] MD, FACC FACP CCDS Ot I10 ESSENTIAL (PRIMARY) HYPERTENSION 09/01/[address] MD, FACC FACP CCDS Ot I25.110 ATHSCL HEART DISEASE OF [place] COR ART W 09/01/[address] MD, FACC FACP CCDS Ot I25.82 CHRONIC TOTAL OCCLUSION OF CORONARY [place] 09/01/[address] MD, FACC FACP CCDS Ot Z79.899 OTHER PRISON (CURRENT) DRUG THERAPY 09/01/[address] MD, FACC FACP CCDS Ot Z86.711 PERSONAL HISTORY OF PULMONARY EMBOLISM 09/01/2015 HILLARY PACHECO FACC, MAISHA FACP CCDS Ot Z95.0 PRESENCE OF CARDIAC PACEMAKER 09/01/[address] MD, FACC FACP CCDS Ot Z95.1 PRESENCE OF AORTOCORONARY BYPASS GRAFT 11/03/2015 LARON HUTCHISON MD Ot Z48.812 11/03/2015 LARON HUTCHISON MD Ot Z95.5 11/04/2015 LARON HUTCHISON MD Ot Z48.812 11/04/2015 LARON HUTCHISON MD Ot Z95.5 12/23/2015 LARON HUTCHISON MD Ot Z48.812 ENCNTR FOR SURGICAL AFTCR FOLLOWING SURG 12/23/2015 LARON HUTCHISON MD Ot Z95.5 PRESENCE OF CORONARY ANGIOPLASTY IMPLANT 12/24/2015 LARON HUTCHISON MD Ot Z48.812 12/24/2015 LARON HUTCHISON MD Ot Z95.5 12/24/2015 LARON HUTCHISON MD Ot Z48.812 12/24/2015 LARON HUTCHISON MD Ot Z95.5 12/24/2015 Ot 414.01 12/24/2015 Ot 786.50 12/24/2015 Ot V58.63 12/24/2015 Ot V58.66 12/24/2015 Ot V58.69 12/24/2015 Ot V72.63 12/24/2015 Ot V72.81 12/24/2015 Ot V45.81 12/24/2015 Ot V57.89 12/24/2015 GIOVANNA CARRILLO L PRINCIPAL SECRETARY Ot 401.9 12/24/2015 BAIGIOVANNA PIERCE L PRINCIPAL SECRETARY Ot 414.00 12/24/2015 BAIGIOVANNA PIERCE L PRINCIPAL SECRETARY Ot 424.1 12/24/2015 BAIGIOVANNA PIERCE L PRINCIPAL SECRETARY Ot 441.2 12/24/2015 BAIGIOVANNA PIERCE L PRINCIPAL SECRETARY Ot V45.01 12/24/2015 HILLARY PACHECO FACC, ALI [...] Z48.812 12/24/2015 LARON HUTCHISON MD Ot Z95.5 12/29/2015 LARON HUTCHISON MD Ot Z48.812 12/29/2015 LARON HUTCHISON MD Ot Z95.5 01/04/2016 LARON HUTCHISON MD Ot Z48.812 01/04/2016 LARON HUTCHISON MD Ot Z95.5 01/12/2016 LARON HUTCHISON MD Ot Z48.812 ENCNTR FOR SURGICAL AFTCR FOLLOWING SURG 01/12/2016 FOSTER PACHECO, LARON Mora Ot Z95.5 PRESENCE OF CORONARY ANGIOPLASTY IMPLANT 01/14/2016 BAIMA, GIOVANNA L PRINCIPAL SECRETARY Ot E78.4 01/14/2016 BAIMA, GIOVANNA L PRINCIPAL SECRETARY Ot I25.10 01/14/2016 BAIMA, GIOVANNA L PRINCIPAL SECRETARY Ot I35.8 01/14/2016 BAIMA, GIOVANNA L PRINCIPAL SECRETARY Ot I71.2 02/02/2016 BAIMA, GIOVANNA L PRINCIPAL SECRETARY Ot E78.4 OTHER HYPERLIPIDEMIA 02/02/2016 BAIMA, GIOVANNA L PRINCIPAL SECRETARY Ot I25.10 ATHSCL HEART DISEASE OF [place] CORONARY 02/02/2016 BAIMA, GIOVANNA L PRINCIPAL SECRETARY Ot I35.8 OTHER NONRHEUMATIC AORTIC VALVE DISORDER 02/02/2016 BAIMA, GIOVANNA L PRINCIPAL SECRETARY Ot I71.2 THORACIC AORTIC ANEURYSM, WITHOUT RUPTUR 02/09/2016 BAIMA, GIOVANNA L PRINCIPAL SECRETARY Ot E78.4 OTHER HYPERLIPIDEMIA 02/09/2016 BAIMA, GIOVANNA L PRINCIPAL SECRETARY Ot I25.10 ATHSCL HEART DISEASE OF [place] CORONARY 02/09/2016 BAIMA, GIOVANNA L PRINCIPAL SECRETARY Ot I35.8 OTHER NONRHEUMATIC AORTIC VALVE DISORDER 02/09/2016 BAIMA, GIOVANNA L PRINCIPAL SECRETARY Ot I71.2 THORACIC AORTIC ANEURYSM, WITHOUT RUPTUR 02/16/2016 BAIMA, GIOVANNA L PRINCIPAL SECRETARY Ot E78.4 OTHER HYPERLIPIDEMIA 02/16/2016 BAIMA, GIOVANNA L PRINCIPAL SECRETARY Ot I10 ESSENTIAL (PRIMARY) HYPERTENSION 02/16/2016 BAIMA, GIOVANNA L PRINCIPAL SECRETARY Ot I25.10 ATHSCL HEART DISEASE OF [place] CORONARY 02/16/2016 BAIMA, GIOVANNA L PRINCIPAL SECRETARY Ot I71.2 THORACIC AORTIC ANEURYSM, WITHOUT RUPTUR 02/16/2016 BAIMA, GIOVANNA L PRINCIPAL SECRETARY Ot R07.9 CHEST PAIN, UNSPECIFIED 02/16/2016 BAIMA, GIOVANNA L PRINCIPAL SECRETARY Ot Z95.0 PRESENCE OF CARDIAC PACEMAKER 03/15/2016 BAIMA, GIOVANNA L PRINCIPAL SECRETARY Ot E78.4 OTHER HYPERLIPIDEMIA 03/15/2016 BAIMA, GIOVANNA L PRINCIPAL SECRETARY Ot I10 ESSENTIAL (PRIMARY) HYPERTENSION 03/15/2016 BAIMA, GIOVANNA L PRINCIPAL SECRETARY Ot I25.10 ATHSCL HEART DISEASE OF [place] CORONARY 03/15/2016 BAIGIOVANNA PIERCE L PRINCIPAL SECRETARY Ot I71.2 THORACIC AORTIC ANEURYSM, WITHOUT RUPTUR 03/15/2016 BAIMA GIOVANNA L PRINCIPAL SECRETARY Ot R07.9 CHEST PAIN, UNSPECIFIED 03/15/2016 BAIMA, GIOVANNA L PRINCIPAL SECRETARY Ot Z95.0 PRESENCE OF CARDIAC PACEMAKER 03/17/2016 BAIMA GIOVANNA L PRINCIPAL SECRETARY Ot E78.4 OTHER HYPERLIPIDEMIA 03/17/2016 BAIMA, GIOVANNA L PRINCIPAL SECRETARY Ot I10 ESSENTIAL (PRIMARY) HYPERTENSION 03/17/2016 BAIMA, GIOVANNA L PRINCIPAL SECRETARY Ot I25.10 ATHSCL HEART DISEASE OF [place] CORONARY 03/17/2016 BAISTAN, GIOVANNA L PRINCIPAL SECRETARY Ot I71.2 THORACIC AORTIC ANEURYSM, WITHOUT RUPTUR 03/17/2016 BAIMA, GIOVANNA L PRINCIPAL SECRETARY Ot R07.9 CHEST PAIN, UNSPECIFIED 03/17/2016 BAIMA, GIOVANNA L PRINCIPAL SECRETARY Ot Z95.0 PRESENCE OF CARDIAC PACEMAKER 03/22/2017 Ot V45.81 AORTOCORONARY BYPASS 03/22/2017 Ot V57.89 REHABILITATION PROC NEC 03/22/2017 BAIMA, GIOVANNA L PRINCIPAL SECRETARY Ot 401.9 HYPERTENSION NOS 03/22/2017 BAIMA, GIOVANNA L PRINCIPAL SECRETARY Ot 414.00 CORON ATHEROSCLER NOS TYPE VESSEL, NATIV 03/22/2017 BAISTAN GIOVANNA L PRINCIPAL SECRETARY Ot 424.1 AORTIC VALVE DISORDER 03/22/2017 BAIMA, GIOVANNA L PRINCIPAL SECRETARY Ot 441.2 THORACIC AORTIC ANEURYSM 03/22/2017 BAIMA, GIOVANNA L PRINCIPAL SECRETARY Ot V45.01 CARDIAC PACEMAKER IN SITU 03/22/2017 HILLARY PACHECO FACC, ALI FACP CCDS Ot 272.4 HYPERLIPIDEMIA NEC/NOS 03/22/2017 HILLARY PACHECO FACC, ALI FACP CCDS Ot 401.9 HYPERTENSION NOS 03/22/2017 HILLARY PACHECO FACC, ALI FACP CCDS Ot 414.00 CORON ATHEROSCLER NOS TYPE VESSEL, NATIV 03/22/2017 HILLARY PACHECO FACC, ALI FACP CCDS Ot 426.11 ATRIOVENT BLOCK-1ST DEGR 03/22/2017 HILLARY PACHECO FACC, MAISHA FACP CCDS Ot 426.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 03/22/2017 HILLARY PACHECO FACC, ALI FACP CCDS Ot 429.3 CARDIOMEGALY 03/22/2017 HILLARY PACHECO [facility], ALI FACP CCDS Ot 441.2 THORACIC AORTIC ANEURYSM 03/22/2017 HILLARY PACHECO [facility], ALI FACP CCDS Ot V45.01 CARDIAC PACEMAKER IN SITU 03/22/2017 BAIGIOVANNA PIERCE L PRINCIPAL SECRETARY Ot E78.4 OTHER HYPERLIPIDEMIA 03/22/2017 BAIGIOVANNA PIERCE L PRINCIPAL SECRETARY Ot I25.10 ATHSCL HEART DISEASE OF [place] CORONARY 03/22/2017 BAISTAN GIOVANNA L PRINCIPAL SECRETARY Ot I35.8 OTHER NONRHEUMATIC AORTIC VALVE DISORDER 03/22/2017 BAIMA GIOVANNA L PRINCIPAL SECRETARY Ot I71.2 THORACIC AORTIC ANEURYSM, WITHOUT RUPTUR 03/22/2017 BAIMA GIOVANNA L PRINCIPAL SECRETARY Ot E78.4 OTHER HYPERLIPIDEMIA 03/22/2017 BAIMA, GIOVANNA L PRINCIPAL SECRETARY Ot I10 ESSENTIAL (PRIMARY) HYPERTENSION 03/22/2017 BAIGAYLE PIERCEHER L PRINCIPAL SECRETARY Ot I25.10 ATHSCL HEART DISEASE OF [place] CORONARY 03/22/2017 BAIGIOVANNA PIERCE L PRINCIPAL SECRETARY Ot I71.2 THORACIC AORTIC ANEURYSM, WITHOUT RUPTUR 03/22/2017 BAIGAYLE PIERCEHER L PRINCIPAL SECRETARY Ot R07.9 CHEST PAIN, UNSPECIFIED 03/22/2017 BAIMA GIOVANNA L PRINCIPAL SECRETARY Ot Z95.0 PRESENCE OF CARDIAC PACEMAKER 03/22/2017 ALVIN FORBES MD Ot G56.02 CARPAL TUNNEL SYNDROME, LEFT UPPER LIMB 03/22/2017 ALVIN FORBES MD Ot Z01.818 ENCOUNTER FOR OTHER PREPROCEDURAL EXAMIN 03/22/2017 ALVIN FORBES MD Ot Z11.2 ENCOUNTER FOR SCREENING FOR OTHER BACTER 03/28/2017 ALVIN FORBES MD Ot E78.5 HYPERLIPIDEMIA, UNSPECIFIED 03/28/2017 ALVIN FORBES MD Ot G56.02 CARPAL TUNNEL SYNDROME, LEFT UPPER LIMB 03/28/2017 ALVIN FORBES MD Ot I10 ESSENTIAL (PRIMARY) HYPERTENSION 03/28/2017 ALVIN FORBES MD Ot I25.10 ATHSCL HEART DISEASE OF [place] CORONARY 03/28/2017 ALVIN FORBES MD Ot K21.9 GASTRO-ESOPHAGEAL REFLUX DISEASE WITHOUT 03/28/2017 ALVIN FORBES MD Ot Z11.2 ENCOUNTER FOR SCREENING FOR OTHER BACTER 03/28/2017 ALVIN FORBES MD, Ot Z79.891 PRISON (CURRENT) USE OF OPIATE ANALGE 03/28/2017 ALVIN FORBES MD Ot Z95.0 PRESENCE OF CARDIAC PACEMAKER 03/28/2017 ALVIN FORBES MD Ot Z95.1 PRESENCE OF AORTOCORONARY BYPASS GRAFT 03/28/2017 ALVIN FORBES MD Ot Z95.5 PRESENCE OF CORONARY ANGIOPLASTY IMPLANT 03/29/2017 ALVIN FORBES MD Ot E78.5 HYPERLIPIDEMIA, UNSPECIFIED 03/29/2017 ALVIN FORBES MD, Ot G56.02 CARPAL TUNNEL SYNDROME, LEFT UPPER LIMB 03/29/2017 ALVIN FORBES MD, Ot I10 ESSENTIAL (PRIMARY) HYPERTENSION 03/29/2017 ALVIN FORBES MD, Ot I25.10 ATHSCL HEART DISEASE OF [place] CORONARY 03/29/2017 ALVIN FORBES MD, Ot K21.9 GASTRO-ESOPHAGEAL REFLUX DISEASE WITHOUT 03/29/2017 ALVIN FORBES MD Ot Z11.2 ENCOUNTER FOR SCREENING FOR OTHER BACTER 03/29/2017 ALVIN FORBES MD, Ot Z79.891 PRISON (CURRENT) USE OF OPIATE ANALGE 03/29/2017 ALVIN FORBES MD Ot Z95.0 PRESENCE OF CARDIAC PACEMAKER 03/29/2017 ALVIN FORBES MD Ot Z95.1 PRESENCE OF AORTOCORONARY BYPASS GRAFT 03/29/2017 ALVIN FORBES MD Ot Z95.5 PRESENCE OF CORONARY ANGIOPLASTY IMPLANT 08/02/2017 Ot V45.81 AORTOCORONARY BYPASS 08/02/2017 Ot V57.89 REHABILITATION PROC NEC 08/02/2017 ALVIN FORBES MD Ot G56.01 CARPAL TUNNEL SYNDROME, RIGHT UPPER LIMB 08/02/2017 ALVIN FORBES MD Ot Z01.818 ENCOUNTER FOR OTHER PREPROCEDURAL EXAMIN 08/06/2017 Ot V45.81 AORTOCORONARY BYPASS 08/06/2017 Ot V57.89 REHABILITATION PROC NEC 08/06/2017 GIOVANNA CARRILLO PRINCIPAL SECRETARY Ot 401.9 HYPERTENSION NOS 08/06/2017 GIOVANNA CARRILLOP Ot 414.00 CORON ATHEROSCLER NOS TYPE VESSEL, NATIV 08/06/2017 GIOVANNA CARRILLO PRINCIPAL SECRETARY Ot 424.1 AORTIC VALVE DISORDER 08/06/2017 BAIMA, GIOVANNA L PRINCIPAL SECRETARY Ot 441.2 THORACIC AORTIC ANEURYSM 08/06/2017 BAIMA, GIOVANNA L PRINCIPAL SECRETARY Ot V45.01 CARDIAC PACEMAKER IN SITU 08/06/2017 HILLARY PACHECO FACC, ALI FACP CCDS Ot 272.4 HYPERLIPIDEMIA NEC/NOS 08/06/2017 HILLARY PACHECO FACC, ALI FACP CCDS Ot 401.9 HYPERTENSION NOS 08/06/2017 HILLARY PACHECO FACC, ALI FACP CCDS Ot 414.00 CORON ATHEROSCLER NOS TYPE VESSEL, NATIV 08/06/2017 HILLARY PACHECO FACC, ALI FACP CCDS Ot 426.11 ATRIOVENT BLOCK-1ST DEGR 08/06/2017 HILLARY PACHECO FACC, ALI FACP CCDS Ot 426.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 08/06/2017 HILLARY PACHECO FACC, ALI FACP CCDS Ot 429.3 CARDIOMEGALY 08/06/2017 HILLARY PACHECO FACC, ALI FACP CCDS Ot 441.2 THORACIC AORTIC ANEURYSM 08/06/2017 HILLARY PACHECO FACC, ALI FACP CCDS Ot V45.01 CARDIAC PACEMAKER IN SITU 08/06/2017 BAIMA, GIOVANNA L PRINCIPAL SECRETARY Ot E78.4 OTHER HYPERLIPIDEMIA 08/06/2017 BAIMA, GIOVANNA L PRINCIPAL SECRETARY Ot I25.10 ATHSCL HEART DISEASE OF [place] CORONARY 08/06/2017 BAIMA, GIOVANNA L PRINCIPAL SECRETARY Ot I35.8 OTHER NONRHEUMATIC AORTIC VALVE DISORDER 08/06/2017 BAIMA, GIOVANNA L PRINCIPAL SECRETARY Ot I71.2 THORACIC AORTIC ANEURYSM, WITHOUT RUPTUR 08/06/2017 BAIMA, GIOVANNA L PRINCIPAL SECRETARY Ot E78.4 OTHER HYPERLIPIDEMIA 08/06/2017 BAIMA, GIOVANNA L PRINCIPAL SECRETARY Ot I10 ESSENTIAL (PRIMARY) HYPERTENSION 08/06/2017 BAIMA, GIOVANNA L PRINCIPAL SECRETARY Ot I25.10 ATHSCL HEART DISEASE OF [place] CORONARY 08/06/2017 BAIMA, GIOVANNA L PRINCIPAL SECRETARY Ot I71.2 THORACIC AORTIC ANEURYSM, WITHOUT RUPTUR 08/06/2017 BAIMA, GIOVANNA L PRINCIPAL SECRETARY Ot R07.9 CHEST PAIN, UNSPECIFIED 08/06/2017 BAIMA, GIOVANNA L PRINCIPAL SECRETARY Ot Z95.0 PRESENCE OF CARDIAC PACEMAKER 08/08/2017 LEIDY PACHECO, ALVIN [place] Ot G56.01 CARPAL TUNNEL SYNDROME, RIGHT UPPER LIMB 08/08/2017 ALVIN FORBES MD Ot I10 ESSENTIAL (PRIMARY) HYPERTENSION 08/08/2017 ALVIN FORBES MD Ot I25.10 ATHSCL HEART DISEASE OF [place] CORONARY 08/08/2017 ALVIN FORBES MD Ot K21.9 GASTRO-ESOPHAGEAL REFLUX DISEASE WITHOUT 08/08/2017 ALVIN FORBES MD Ot Z79.899 OTHER PRISON (CURRENT) DRUG THERAPY 08/08/2017 ALVIN FORBES MD Ot Z86.718 PERSONAL HISTORY OF OTHER VENOUS THROMBO 08/08/2017 ALVIN FORBES MD Ot Z95.0 PRESENCE OF CARDIAC PACEMAKER 08/08/2017 ALVIN FORBES MD Ot Z95.1 PRESENCE OF AORTOCORONARY BYPASS GRAFT 08/08/2017 ALVIN FORBES MD Ot Z95.5 PRESENCE OF CORONARY ANGIOPLASTY IMPLANT 08/14/2017 ALVIN FORBES MD Ot G56.01 CARPAL TUNNEL SYNDROME, RIGHT UPPER LIMB 08/14/2017 ALVIN FORBES MD Ot I10 ESSENTIAL (PRIMARY) HYPERTENSION 08/14/2017 ALVIN FORBES MD Ot I25.10 ATHSCL HEART DISEASE OF [place] CORONARY 08/14/2017 ALVIN FORBES MD Ot K21.9 GASTRO-ESOPHAGEAL REFLUX DISEASE WITHOUT 08/14/2017 ALVIN FORBES MD Ot Z79.899 OTHER EPIC [place] SPECIALIST (CURRENT) DRUG THERAPY 08/14/2017 ALVIN FORBES MD Ot Z86.718 PERSONAL HISTORY OF OTHER VENOUS THROMBO 08/14/2017 ALVIN FORBES MD Ot Z95.0 PRESENCE OF CARDIAC PACEMAKER 08/14/2017 ALVIN FORBES MD Ot Z95.1 PRESENCE OF AORTOCORONARY BYPASS GRAFT 08/14/2017 ALVIN FORBES MD Ot Z95.5 PRESENCE OF CORONARY ANGIOPLASTY IMPLANT 08/21/2017 Clifton Ritchie 401.9 UNSPECIFIED ESSENTIAL HYPERTENSION 08/21/2017 Clifton Ritchie 729.2 NEURALGIA, NEURITIS, AND RADICULITIS, UNSPECIFIED 08/21/2017 Clifton Ritchie I10 ESSENTIAL (PRIMARY) HYPERTENSION 08/21/2017 Clifton Ritchie M79.2 NEURALGIA AND NEURITIS, UNSPECIFIED 08/21/2017 Clifton Ritchie V82.9 SCREENING FOR UNSPECIFIED CONDITION 08/21/2017 ErmaClifton Z13.9 ENCOUNTER FOR SCREENING, UNSPECIFIED 08/21/2017 Erma Clifton Peter 401.9 UNSPECIFIED ESSENTIAL HYPERTENSION 08/21/2017 Erma Clifton [place] 729.2 NEURALGIA, NEURITIS, AND RADICULITIS, UNSPECIFIED 08/21/2017 Erma Clifton [place] I10 ESSENTIAL (PRIMARY) HYPERTENSION 08/21/2017 Erma Clifton [place] M79.2 NEURALGIA AND NEURITIS, UNSPECIFIED 08/21/2017 Erma Clifton Peter V82.9 SCREENING FOR UNSPECIFIED CONDITION 08/21/2017 Erma Clifton Green Z13.9 ENCOUNTER FOR SCREENING, UNSPECIFIED 06/18/2018 Erma Clifton Peter 788.1 DYSURIA 06/18/2018 Erma Clifton Peter R30.0 DYSURIA 06/18/2018 Erma Clifton Peter 788.1 DYSURIA 06/18/2018 Erma Clifton Peter R30.0 DYSURIA 07/17/2018 Clifton Ritchie 401.9 UNSPECIFIED ESSENTIAL HYPERTENSION 07/17/2018 Clifton Ritchie 786.50 UNSPECIFIED CHEST PAIN 07/17/2018 Erma Clifton [place] I10 ESSENTIAL (PRIMARY) HYPERTENSION 07/17/2018 Erma Clifton [place] R07.9 CHEST PAIN, UNSPECIFIED 07/17/2018 Erma Clifton Peter 401.9 UNSPECIFIED ESSENTIAL HYPERTENSION 07/17/2018 Erma Clifton Peter 786.50 UNSPECIFIED CHEST PAIN 07/17/2018 Erma Clifton [place] I10 ESSENTIAL (PRIMARY) HYPERTENSION 07/17/2018 Erma Clifton Peter R07.9 CHEST PAIN, UNSPECIFIED Procedures There is no data. Results Test Result Range Lipid Panel - 08/29/16 06:30 C/HDL 3.6 3.7-6.7 Cholesterol 135 mg/dL 100-240 HDL 37 mg/dL 30-85 LDL-Calculated 67 mg/dL 0-100 Trig 157 mg/dL 35-160 VLDL 31 mg/dL 0-42 Comprehensive Metabolic Panel - 03/08/17 06:28 Albumin 4.1 g/dL 3.6-5.1 ALP 44 U/L 35-130 ALT 23 U/L 6-45 Anion Gap 14 6-14 AST 20 U/L 2-40 BUN 21 mg/dL 5-25 Calcium 9.6 mg/dL 8.3-10.4 Chloride 106 mmol/L 95-114 CO2 25 mEq/L 22-33 Creat 1.58 mg/dL 0.50-1.50 eGFR 43 mL/min/1.73m2 >59 Globulin 3.9 g/dL 2.3-3.5 Glucose 103 mg/dL 70-110 Osmo 294 280-295 Potassium 4.4 mmol/L 3.5-5.3 Sodium 141 mmol/L 134-148 TBil 0.7 mg/dL 0.2-1.2 TP 8.0 g/dL 6.0-8.3 Lipid Panel - 03/08/17 06:28 C/HDL 3.8 3.7-6.7 Cholesterol 127 mg/dL 100-240 HDL 33 mg/dL 30-85 LDL-Calculated 62 mg/dL 0-100 Trig 159 mg/dL 35-160 VLDL 32 mg/dL 0-42 Methicillin resistant Staphylococcus aureus (MRSA) screening culture - 11:46 MRSA SCREEN RESULT MRSA ISOLATED NRG Methicillin resistant Staphylococcus aureus (MRSA) screening culture - 11:12 Methicillin resistant Staphylococcus aureus (MRSA) screening culture NEG NRG Urine Protein/Creat - 04/20/17 06:10 MTP 15 mg/dL 0-20 Urine Creatinine 181.0 mg/dl 0.0-50.0 Urine Protein/Creat Ratio 0.08 mg/dL Methicillin resistant Staphylococcus aureus (MRSA) screening culture - 08:30 MRSA SCREEN RESULT MRSA ISOLATED NRG PSA Yearly Screen - 08/21/17 10:54 PSA TOTAL 2.0 ng/mL 0.0-4.0 PTH, Intact - 09/05/17 06:43 PTH, Intact 23 pg/mL Vitamin D, 25 OH - 09/05/17 06:43 Vitamin D, 25 OH 27.30 ng/mL 25.00-100.00 PTH, Intact - 09/05/17 06:43 PTH, INTACT 23 PG/ML PTH, Intact - 03/05/18 06:25 PTH, Intact 17 pg/mL Vitamin D, 25 OH - 03/05/18 06:25 Vitamin D, 25 OH 46.50 ng/mL 25.00-100.00 PTH, Intact - 03/05/18 06:25 PTH, INTACT 17 PG/ML Urinalysis - 03/18/18 09:01 Icotest N/A Negative Urine Volume Urine Volume Sufficient (10mL) Urine Yeast No Yeast present Urine-Appearance Clear Clear Urine-Bacteria Negative Urine-Bilirubin Negative Negative Urine-Blood Negative Negative Urine-Color Yellow Colorless-Lt. Yellow Urine-Epithelial Cells 0-5/HPF Urine-Glucose Negative Negative Urine-Ketones Negative Negative Urine-Leukocytes Negative Negative Urine-Nitrite Negative Negative Urine-Other Urine Saved if Culture Needed (48hrs from time of collection) Urine-pH 5.5 5-8.5 Urine-Protein Negative Negative Urine-RBC Negative Urine-Specific [place] 1.010 1.000-1.030 Urine-WBC Nothing Seen on Microscopic Urobilinogen 0.2 E.U./dL 0.2-1.0 Lipid Panel - 03/21/18 06:00 C/HDL 3.2 3.7-6.7 Cholesterol 95 mg/dL 100-240 HDL 30 mg/dL 30-85 LDL-Calculated 45 mg/dL 0-100 Trig 98 mg/dL 35-160 VLDL 20 mg/dL 0-42 PSA Yearly Screen - 03/21/18 06:00 PSA TOTAL 1.6 ng/mL 0.0-4.0 BNP - 07/17/18 02:50 BNP 72.50 pg/ml 0.00-100.00 Thyroid Stimulating Hormone - 07/17/18 02:53 TSH 3.61 mIU/mL 0.32-5.00 Cardiac Panel - 07/17/18 05:57 CK 80 U/L 26-174 CK-MB 1.4 ng/ml 0.0-9.2 Myoglobin 61.7 ng/ml 1.6-154.9 Troponin <0.020 ng/mL 0.0-0.4 Cardiac Panel - 07/17/18 09:35 CK 87 U/L 26-174 CK-MB 1.4 ng/ml 0.0-9.2 Myoglobin 64.9 ng/ml 1.6-154.9 Troponin <0.020 ng/mL 0.0-0.4 Encounters ACCT No. Visit Date/Time Discharge Status Pt. Type Provider Facility Loc./Unit Complaint [id number] 04/02/2018 07:45:00 04/02/2018 23:59:59 CLS Preadmit GIOVANNA CARRILLO [facility] CARD CAD,HYPERLIPIDEMIA [id number] 08/08/2017 06:00:00 08/08/2017 09:55:00 DIS Outpatient ALVIN FORBES MD [facility] RIGHT CARPAL TUNNEL SYNDROME [id number] 08/02/2017 08:16:00 08/02/2017 10:09:00 DIS Outpatient ALVIN FORBES MD [facility] PREOP RIGHT CARPAL TUNNEL SYNDROME [id number] 03/28/2017 08:21:00 03/28/2017 11:39:00 DIS Outpatient ALVIN FORBES MD [facility] LEFT CARPAL TUNNEL SYNDROME [id number] 03/22/2017 11:19:00 03/22/2017 11:45:00 DIS Outpatient ALVIN FORBES MD [facility] PREOP LEFT CARPAL TUNNEL SYNDROME [id number] 02/15/2016 07:18:00 02/15/2016 23:59:59 CLS Outpatient GIOVANNA CARRILLO [facility] CARD CHEST PAIN,CAD, CARDIAC PACEMAKER,HLP,LABILE HTN [id number] 01/13/2016 07:21:00 01/13/2016 23:59:59 CLS Outpatient GIOVANNA CARRILLO [facility] CARD CAD,AORTIC VALVE SCLEROSIS [id number] 01/12/2016 11:56:00 01/12/2016 13:06:00 DIS Outpatient LARON HUTCHISON MD [facility] CR STENT [id number] 12/20/2015 07:56:00 12/23/2015 00:01:00 DIS Outpatient LARON HUTCHISON MD [facility] CR STENT [id number] 08/31/2015 09:39:00 09/01/2015 11:45:[address] MD, FACC, FACP CCDS [facility] CAD,HTN, HYPERLIPIDEMIA,CHEST PAIN [id number] 06/09/2014 06:53:00 06/09/2014 16:30:[address]HA L[address] MD, FACC, FACP CCDS [facility] CATH ABNORMAL STRESS,CAD,HLP [id number] 05/28/2014 07:19:00 05/28/2014 23:59:[address] MD, FACC, FACP CCDS [facility] CARD CAD,HLP [id number] 04/03/2014 12:30:00 04/03/2014 23:59:59 CLS Outpatient GIOVANNA CARRILLO [employer]CR[employer] [facility] CARD CAD,HLP, [id number] 05/10/2012 11:55:00 Document Registration [id number] 05/03/2012 08:02:00 Document Registration [id number] 03/22/2012 08:00:00 Document Registration [id number] 03/18/2012 11:53:00 Document Registration [id number] 01/16/2012 14:58:00 Document Registration [id number] 01/08/2012 10:00:00 Document Registration [id number] 10/11/2011 08:12:00 Document Registration [id number] 09/26/2011 05:29:00 Document Registration [id number] 09/25/2011 08:22:00 Document Registration [id number] 02/27/2011 00:08:00 Document Registration [id number] 09/06/2017 16:23:00 Document Registration [id number] 03/06/2018 10:18:00 Document Registration [id number] 07/17/2018 02:40:00 07/17/2018 14:23:00 DIS Outpatient [facility] [id number] 06/18/2018 09:14:00 06/18/2018 23:59:00 DIS Outpatient Clifton Ritchie [id number] 05/20/2018 10:44:00 05/20/2018 23:59:00 DIS Outpatient Clifton Ritchie [id number] 03/21/2018 06:07:00 03/21/2018 23:59:00 DIS Outpatient Clifton Ritchie [id number] 03/18/2018 08:52:00 03/18/2018 23:59:00 DIS Outpatient Clifton Ritchie [id number] 03/05/2018 06:19:00 03/05/2018 23:59:00 DIS Outpatient Clifton Ritchie [id number] 09/05/2017 06:40:00 09/05/2017 23:59:[address] [id number] 08/21/2017 10:34:00 08/21/2017 23:59:00 DIS Outpatient Clifton Ritchie [id number] 05/23/2017 08:45:00 05/23/2017 23:59:00 DIS Outpatient MARCELLA OVERTON [id number] 04/20/2017 06:06:00 04/20/2017 23:59:00 DIS Outpatient Clifton Ritchie [id number] 03/08/2017 06:19:00 03/08/2017 23:59:[address] [id number] 08/29/2016 06:27:00 08/29/2016 23:59:[address] [id number] 07/17/2018 02:56:49 Document Registration [id number] 03/18/2018 09:13:37 Document Registration
[2018-07-23] MEDS ORDERED: LIDOCAINE 1% INJ 20 ML 20 ML VIAL ONE (07:18)
[2018-07-23] MEDS ORDERED: HEParin (CATH LAB) 2,000 ML IV ONE (07:18)
[2018-07-23] MEDS ORDERED: NS IV 1000 ML 1,000 ML ONE (07:18)
[2018-07-23 07:53] LABS: HEMOGLOBIN 14.8 G/DL (13.3-17.7); MEAN PLATELET VOLUME 10.2 FL (7.4-10.4); RED BLOOD COUNT 4.97 10^6/uL (4.35-5.85); RED CELL DISTRIBUTION WIDTH 14.3 % (10.0-14.5); WHITE BLOOD COUNT 6.3 10^3/uL (4.3-11.0)
[2018-07-23] MEDS ORDERED: NS IV 500 ML 500 ML IV ONE (08:00)
[2018-07-23] MEDS ORDERED: METO100T6 PO (08:10)
[2018-07-23] MEDS ORDERED: METO-352 PO (08:10)
[2018-07-23 08:11] LABS: PROTHROMBIN TIME PATIENT 13.6 SEC (12.2-14.7)
[2018-07-23 08:12] LABS: ALBUMIN 4.5 GM/DL (3.2-4.5); BILIRUBIN,TOTAL 0.6 MG/DL (0.1-1.0); CALCIUM 9.9 MG/DL (8.5-10.1); CREATININE SERUM 1.4 MG/DL (0.60-1.30); POTASSIUM 4.1 MMOL/L (3.6-5.0); TOTAL PROTEIN 8.3 GM/DL (6.4-8.2)
[2018-07-23] MEDS ORDERED: MAGN400T39 PO (08:12)
[2018-07-23] MEDS ORDERED: APIX5TAB PO (08:12)
[2018-07-23] MEDS ORDERED: FLU QUADRIvalent (5+ YOA) 2018-2019 (AFLURIA) 0.5 ML IM ONE (08:30)
[2018-07-23] MEDS ORDERED: HEParin 1000 UNIT/ML (10ML VIAL) FOR BOLUS ONE (09:24)
[2018-07-23] MEDS ORDERED: fentaNYL INJECTION 100 MCG/2 ML AMP ONE (09:24)
[2018-07-23] MEDS ORDERED: MIDAZOLAM 5 MG/5 ML (VERSED) VIAL ONE (09:24)
[2018-07-23] MEDS ORDERED: diphenhydrAMINE 50 MG/ML INJ (BENADRYL) ONE (09:39)
[2018-07-23] MEDS ORDERED: methylPREDNISolone 125 MG (Solu-MEDROL) VIAL ONE (09:39)
--- NOTE | 2018-07-23 10:07 | Cardiac Procedure Note-CS/ASA ---
Pre-Procedure Note Pre-Op Procedure Note H&P Reviewed The H&P was reviewed, patient examined and no changes noted. Date H&P Reviewed: Jul 23, 2018 Time H&P Reviewed: 10:06 Conscious Sedation Pre-Proced Time 10:06 ASA Score 3 For ASA 3 and 4: Consider anesthesia and medical clearance. Also, for patients with a history of failed moderate sedation consider anesthesia. Airway Lungs Heart ASA score ASA 1: a normal healthy patient ASA 2: a patient with a mild systemic disease (mid diabetes, controlled hypertension, obesity ASA 3: a patient with a severe systemic disease that limits activity (angina , COPD, prior Myocardial infarction) ASA 4: a patient with an incapacitating disease that is a constant threat to life (CHF, renal failure) ASA 5: a moribund patient not expected to survive 24 hrs. (ruptured aneurysm) ASA 6: a declared brain patient whose organs are being harvested. For emergent operations, add the letter E after the classification Mallampati Classification Grade 3 Sedation Plan Analgesia, Amnesia, Plan communicated to team members, Discussed options with patient/fam, Discussed risks with patient/fam The patient is an appropriate candidate to undergo the planned procedure, sedation, and anesthesia. The patient immediately re-assessed prior to indication. SILVIA THORNTON MD FACP [facility]AC CCDS Jul 23, 2018 10:06
[2018-07-23] MEDS ORDERED: NS IV 1000 ML 1,000 ML IV SCH (10:57)
[2018-07-23] MEDS ORDERED: PATIENT MAY USE OWN MEDS, ALL PO SCH (11:00)
--- NOTE | 2018-07-23 11:00 | Discharge Inst-Post CATH ---
Discharge Inst-CATH Post Cardiac Cath D/C Inst Follow Up/Plan F/u with Dr Lane in 2 weeks CARDIAC CATH DISCHARGE INSTRUCTIONS *Hold Metformin for 48 hours post heart cath. ACTIVITY * Go Home directly and rest. * Limit activity of the leg (or wrist if it was used) for 7 days including aerobics, swimming, jogging, bicycling, etc. * Restrict stair-climbing for 7 days if possible, if not, climb up with your non -cath leg, then bring together on the same step. * Avoid lifting, pushing, pulling or excessive movement of the affected extremity for 7 days. * Customary sexual activity may be resumed after 2 days-use caution not to use a position that strains or causes pain to the affected extremity. * No driving for 24 hours. * NO SMOKING. * Avoid straining for bowel movements for 7 days. * Gentle walking on level ground is allowed. * Returning to work will depend on the type of procedure and the results. Your doctor will discuss this with you. CALL YOUR DOCTOR FOR ANY OF THE FOLLOWING: *If bleeding from the puncture site occurs- Apply gentle pressure to site with clean cloth and call your doctor or EMS. * If a knot or lump forms under the skin, increases in size, or causes pain. * If bruising appears to be worsening or moving further down your leg instead of disappearing. * Temperature above 101 F. CARE OF YOUR GROIN INCISION; * Bruising or purple discoloration of the skin near the puncture site is common. * You may shower only, no bathtub bathing for 5 days. Be careful to avoid slipping as your leg may feel stiff. * If a closure device was used on your femoral artery, please see the attached guide regarding care of the device and your leg. * Leave the dressing on, until removed by office staff. CARE OF YOUR WRIST INCISION; * Bruising or purple discoloration of the skin near the puncture site is common. * You may shower. * DO NOT submerge wrist. * Leave dressing on, until removed by office staff.. SILVIA LANE MD [facility] CCDS Jul 23, 2018 11:00
--- NOTE | 2018-07-23 11:01 | Discharge Inst-Cardiology ---
Discharge Inst-Cardiac Discharge Medications Continued Medications: Amlodipine Besylate (Amlodipine Besylate) 10 Mg Tablet 10 MG PO DAILY Apixaban (Eliquis) 5 Mg Tablet 5 MG PO BID, TAB Aspirin (Aspir 81) 81 Mg Tablet.dr 81 MG PO DAILY, TAB Furosemide (Furosemide) 20 Mg Tablet 20 MG PO DAILY, TAB Magnesium Oxide (Magnesium) 400 Mg Tablet 400 MG PO HS, TAB Metoprolol Succinate (Toprol Xl) 50 Mg Tab.er.24h 50 MG PO HS, TAB Metoprolol Succinate (Toprol Xl) 100 Mg Tab.er.24h 100 MG PO DAILY, TAB Multivitamin (Multivitamins) 1 Each Capsule 1 EACH PO DAILY, CAP Nitroglycerin (Nitroglycerin) 0.4 Mg Tab.subl 0.4 MG SL PRN PRN for CHEST PAIN, TAB [place] 3 Polyunsat Fatty Acids (Fish Oil 1,000 mg Capsule) 1,000 Mg Cap 1000 MG PO DAILY, CAP Omeprazole (Omeprazole) 40 Mg Capsule.dr 40 MG PO DAILY, CAP Simvastatin (Simvastatin) 40 Mg Tablet 40 MG PO HS, TAB SILVIA THORNTON MD FACP [facility] CCDS Jul 23, 2018 11:01
--- NOTE | 2018-07-23 12:01 | CARDIAC CATHETERIZATION ---
DATE OF SERVICE: 07/23/2018 CARDIAC CATHETERIZATION REPORT The patient is a 73-year-old man, who has a history of coronary artery bypass surgery and ascending aortic aneurysm repair. He has lately been having symptoms suggestive of recurrent angina. Cardiac catheterization was carried out today after having obtained an informed consent. PROCEDURE: H was brought to the cardiac catheterization laboratory in a fasting state. Right groin was prepped and draped in usual sterile fashion. Lidocaine 1% local anesthesia. Modified Seldinger technique was used to advance a 5-Kosovan sheath in the right femoral artery, 5-Kosovan JL4 catheter was used for left coronary angiography, 5-Kosovan JR4 catheter for right coronary angiography, 5-Kosovan JR4 catheter was used for angiography of the saphenous vein graft to left circumflex. A 5-Kosovan IMC catheter was used for angiography of the left internal mammary artery graft to left anterior descending artery. A 5-Kosovan pigtail catheter was used for aortic root angiography. At the end of the procedure, angiography of the right femoral artery was carried out through the sheath and Mynx was used to achieve hemostasis. He tolerated the procedure well. AORTIC ROOT ANGIOGRAPHY: Aortic root angiography indicates a somewhat dilated aortic root and aortic arch. The ascending aneurysm repair appears intact. There does not appear to be significant aortic regurgitation. The aortic valve leaflets are not very well visualized on this view. There appears to be some aortic valve sclerosis and calcification. CORONARY ANGIOGRAPHY: Coronary calcification is present. Left main coronary artery does not exhibit significant disease. Left anterior descending artery has widely patent stents in its proximal and mid portions. The mid left anterior descending artery, distal to the mid left anterior descending artery stent has a long up to 80% stenosis. There is a competitive flow in the distal left anterior descending artery from a patent left internal mammary artery graft. The left circumflex artery is markedly ectatic in its mid and distal portions with a slow flow through the ectatic portion of the left circumflex artery. The right coronary artery is small and nondominant and has 60% mid vessel stenosis. SAPHENOUS VEIN GRAFT ANGIOGRAPHY: Saphenous vein graft reported to be to the left circumflex artery is occluded at its ostium. LEFT INTERNAL MAMMARY ARTERY GRAFT ANGIOGRAPHY: Left internal mammary artery graft to distal left anterior descending artery is widely patent and does not exhibit significant disease and has a good distal runoff. CONCLUSIONS: 1. Coronary artery disease primarily consisting of severe mid vessel disease of the left anterior descending artery, but there is a widely patent left internal mammary artery graft to the distal left anterior descending artery. The proximal and the mid left anterior descending artery (proximal to the aforementioned mid-vessel lesions) has widely patent stents. These are known to be Promus Premier 3.25 x 28 mm proximally and Medinol 2.5 x 8 mm & Integrity 2.5 x 12 mm stents in the mid portion of the left anterior descending. 2. Markedly ectatic distal left circumflex. The right coronary artery is small and nondominant and has moderate to moderately severe mid vessel disease. 3. Occluded saphenous vein graft to the left circumflex. 4. Patent left internal mammary artery graft to distal left anterior descending DISCUSSION AND RECOMMENDATIONS: Based on the results of the study, it appears appropriate to continue a conservative approach. Risk factor modification has been reviewed. Current regimen is being continued. Outpatient followup is advised. Job ID: [id number] DocumentID: [id number] Dictated Date: 07/23/2018 10:48:06 Nutrition Helper Date: 07/23/2018 12:00:31 Dictated By: SILVIA THORNTON MD, MA, FACP, FACC, MTDD
== END 2018-07-23 14:45 | disposition home or self-care (01) ==
LOC: CATH 07:03 → SDC 10:58 → CATH 14:45
PROVIDERS: ATTEND Internal Medicine Cardiovascular Disease
DX: I25.10 Atherosclerotic heart disease of native coronary artery without angina pectoris (principal); I12.9 Hypertensive chronic kidney disease with stage 1 through stage 4 chronic kidney disease, or unspecified chronic kidney disease; N18.9 Chronic kidney disease, unspecified; E78.5 Hyperlipidemia, unspecified; I48.0 Paroxysmal atrial fibrillation; K21.9 Gastro-esophageal reflux disease without esophagitis; Z79.01 Long term (current) use of anticoagulants; Z79.82 Long term (current) use of aspirin; Z79.899 Other long term (current) drug therapy; Z95.0 Presence of cardiac pacemaker; Z95.1 Presence of aortocoronary bypass graft; Z95.5 Presence of coronary angioplasty implant and graft; Z87.891 Personal history of nicotine dependence
CPT/HCPCS: 36415; 80053; 80061; 85027; 85610; 85730; 87081; 93455; 93567

== ENCOUNTER → 2020-11-02 | Outpatient (CLI) | payer MEDICARE ==
[~2020-11-02] MED LIST changes: +AMLO-251 PO; -AMLO10TA6 PO; +APIX5TAB PO; +MAGN400T39 PO; +METO-352 PO; -METO-370 PO; +METO100T6 PO; +OMEP40CA27 PO; -OMEP40CA36 PO; +SIMV40TA25 PO
== END ==
LOC: CARD 11:19
PROVIDERS: ATTEND Internal Medicine Cardiovascular Disease
DX: I25.10 Atherosclerotic heart disease of native coronary artery without angina pectoris (principal); I65.23 Occlusion and stenosis of bilateral carotid arteries; I44.1 Atrioventricular block, second degree; I48.0 Paroxysmal atrial fibrillation; I11.9 Hypertensive heart disease without heart failure; I08.0 Rheumatic disorders of both mitral and aortic valves; E78.5 Hyperlipidemia, unspecified; Z95.0 Presence of cardiac pacemaker; Z98.890 Other specified postprocedural states
CPT/HCPCS: 93306

== ENCOUNTER → 2020-12-31 | Outpatient (CLI) | payer MEDICARE ==
[~2020-12-31] VITALS: Ht 177 cm; Wt 113.0 kg
[~2020-12-31] MED LIST changes: -LISI-556 PO; +LISI-729 PO; +REGADENOSON 0.4 MG/5 ML SYR (LEXISCAN) IV ONE
[2020-12-31] MEDS: CATHETER FLUSH 10 ML SYR IV PRN ×2 (07:38→09:02)
[2020-12-31 09:00] VITALS: BP 177/109
--- NOTE | 2020-12-31 19:53 | STRESS TEST ---
DATE OF SERVICE: 12/31/2020 RESTING AND POST REGADENOSON TECHNETIUM-99M TETROFOSMIN SPECT CT IMAGING ORDERING PHYSICIAN: Dr. Lane. PRIMARY PHYSICIAN: Dr. Ritchie. CLINICAL DIAGNOSES: Coronary artery disease. Baseline images were carried out after injection of 10.42 mCi of technetium-99m Tetrofosmin. This was followed by 0.4 mg regadenoson and 31 mCi of technetium-99m Tetrofosmin for stress imaging. The electrocardiogram showed a paced rhythm. The electrocardiogram did not change significantly with regadenoson infusion. The patient tolerated the procedure well. Review of images at rest and following stress does not indicate any distinct perfusion defects consistent with significant myocardial ischemia or infarction. Some degree of apical thinning is seen both at rest and following regadenoson infusion. Gated images show normal global left ventricular systolic function with normal regional wall motion. Left ventricular ejection fraction is calculated to be 67%. Left ventricular end-diastolic volume 97 mL. TID is absent (0.9). CONCLUSIONS: 1. This study does not indicate significant myocardial ischemia or infarction. 2. Well preserved global left ventricular systolic function with ejection fraction of 67%. Job ID: [id number] DocumentID: [id number] Dictated Date: 12/31/2020 15:47:54 Territory Supervisor Date: 12/31/2020 19:52:21 Dictated By: SILVIA LANE MD, MA, FACP, FACC,
== END ==
LOC: CARD 08:00
PROVIDERS: ATTEND Internal Medicine Cardiovascular Disease
DX: I25.10 Atherosclerotic heart disease of native coronary artery without angina pectoris (principal)
CPT/HCPCS: 78452; 93017; A9502

== ENCOUNTER 2021-09-20 10:01 | Day surgery (SDC) | payer MEDICARE ==
[~2021-09-20] VITALS: Ht 180.3 cm; Wt 112.9 kg
[2021-09-20] VITALS (11 sets, daily range): BP systolic 132–161; BP diastolic 82–99
[~2021-09-20 10:01] MED LIST changes: -LISI-729 PO; +LISI5TAB20 PO; -OMEP40CA27 PO; +OMEP40CA6 PO; -REGADENOSON 0.4 MG/5 ML SYR (LEXISCAN) IV ONE
[2021-09-20] MEDS ORDERED: LIDOCAINE 1% INJ 20 ML 20 ML VIAL ONE (10:09)
[2021-09-20] MEDS ORDERED: HEParin (CATH LAB) 2,000 ML IV ONE (10:10)
[2021-09-20] MEDS ORDERED: NS IV 1000 ML 1,000 ML ONE (10:10)
[2021-09-20] MEDS ORDERED: NS IV 1000 ML 1,000 ML IV SCH ×2 (10:15→12:00)
[2021-09-20 10:36] LABS: HEMATOCRIT 49 % (40-54); HEMOGLOBIN 16.1 g/dL (13.3-17.7); MEAN CORPUSCULAR HEMOGLOBIN 30 pg (25-34); MEAN CORPUSCULAR HGB CONC 33 g/dL (32-36); MEAN CORPUSCULAR VOLUME 92 fL (80-99); MEAN PLATELET VOLUME 10.1 fL (9.0-12.2); PLATELET COUNT 259 10^3/uL (130-400); WHITE BLOOD COUNT 8.7 10^3/uL (4.3-11.0)
[2021-09-20] MEDS ORDERED: methylPREDNISolone 125 MG (Solu-MEDROL) VIAL ONE (10:44)
[2021-09-20 10:48] LABS: INR 1.1 (0.8-1.4); PROTHROMBIN TIME PATIENT 14.4 SEC (12.2-14.7)
[2021-09-20 10:55] LABS: ALBUMIN 4.5 GM/DL (3.2-4.5); CALCIUM 9.7 MG/DL (8.5-10.1); CREATININE SERUM 1.34 MG/DL (0.60-1.30); POTASSIUM 3.6 MMOL/L (3.6-5.0); TOTAL PROTEIN 8.4 GM/DL (6.4-8.2)
[2021-09-20] MEDS ORDERED: MIDAZOLAM 5 MG/5 ML (VERSED) VIAL ONE (10:55)
[2021-09-20] MEDS ORDERED: fentaNYL INJ 100 MCG/2 ML AMP ONE (10:55)
[2021-09-20] MEDS ORDERED: diphenhydrAMINE 50 MG/ML INJ (BENADRYL) ONE (10:55)
[2021-09-20] MEDS ORDERED: MAGN250T13 PO (10:59)
--- NOTE | 2021-09-20 11:52 | Cardiac Procedure Note-CS/ASA ---
Pre-Procedure Note Pre-Op Procedure Note H&P Reviewed The H&P was reviewed, patient examined and no changes noted. Date H&P Reviewed: Sep 20, 2021 Time H&P Reviewed: 11:10 Conscious Sedation Pre-Proced Time 11:10 ASA Score 3 For ASA 3 and 4: Consider anesthesia and medical clearance. Also, for patients with a history of failed moderate sedation consider anesthesia. Airway Lungs Heart ASA score ASA 1: a normal healthy patient ASA 2: a patient with a mild systemic disease (mid diabetes, controlled hypertension, obesity ASA 3: a patient with a severe systemic disease that limits activity (angina, COPD, prior Myocardial infarction) ASA 4: a patient with an incapacitating disease that is a constant threat to life (CHF, renal failure) ASA 5: a moribund patient not expected to survive 24 hrs. (ruptured aneurysm) ASA 6: a declared brain- patient whose organs are being harvested. For emergent operations, add the letter E after the classification Mallampati Classification Grade 3 Sedation Plan Analgesia, Amnesia, Plan communicated to team members, Discussed options with patient/fam, Discussed risks with patient/fam The patient is an appropriate candidate to undergo the planned procedure, sedation, and anesthesia. The patient immediately re-assessed prior to indication. SILVIA THORNTON MD FACP [facility]S Sep 20, 2021 11:51
--- NOTE | 2021-09-20 11:54 | Discharge Inst-Post CATH ---
Discharge Inst-CATH/EP Post Cardiac Cath/EP D/C Inst Follow Up/Plan F/u with Dr Lane in one month ACTIVITY * Go Home directly and rest. * Limit activity of the leg (or wrist if it was used) for 7 days including aerobics, swimming, jogging, bicycling, etc. * Restrict stair-climbing for 7 days if possible, if not, climb up with your non-cath leg, then bring together on the same step. * Avoid lifting, pushing, pulling or excessive movement of the affected extremity for 7 days. * Customary sexual activity may be resumed after 2 days-use caution not to use a position that strains or causes pain to the affected extremity. * No driving for 24 hours. * NO SMOKING. * Avoid straining for bowel movements for 7 days. * Gentle walking on level ground is allowed. * Returning to work will depend on the type of procedure and the results. Your doctor will discuss this with you. CALL YOUR DOCTOR FOR ANY OF THE FOLLOWING: *If bleeding from the puncture site occurs- Apply gentle pressure to site with clean cloth and call your doctor or EMS. * If a knot or lump forms under the skin, increases in size, or causes pain. * If bruising appears to be worsening or moving further down your leg instead of disappearing. * Temperature above 101 F. CARE OF YOUR GROIN INCISION; * Bruising or purple discoloration of the skin near the puncture site is common. * You may shower only, no bathtub bathing for 5 days. Be careful to avoid slipping as your leg may feel stiff. * If a closure device was used on your femoral artery, please see the attached guide regarding care of the device and your leg. * Leave dressing on FOR 24 hours. CARE OF YOUR WRIST INCISION; * Bruising or purple discoloration of the skin near the puncture site is common. * You may shower. * DO NOT submerge wrist. * Leave dressing on FOR [address] MD [facility] CCDS Sep 20, 2021 11:54
--- NOTE | 2021-09-20 11:54 | Discharge Inst-Cardiology ---
Discharge Inst-Cardiac Discharge Medications Continued Medications: Amlodipine Besylate (Amlodipine Besylate) 10 Mg Tablet 10 MG PO DAILY Apixaban (Eliquis) 5 Mg Tablet 5 MG PO BID, TAB Aspirin (Aspir 81) 81 Mg Tablet.dr 81 MG PO DAILY, TAB Furosemide (Furosemide) 20 Mg Tablet 20 MG PO DAILY, TAB Magnesium Oxide (Magnesium) 250 Mg Tablet 250 MG PO HS, TAB Metoprolol Succinate (Toprol Xl) 100 Mg Tab.er.24h 100 MG PO Q12H, TAB Multivitamin (Multivitamins) 1 Each Capsule 1 EACH PO DAILY, CAP Nitroglycerin (Nitroglycerin) 0.4 Mg Tab.subl 0.4 MG SL PRN PRN for CHEST PAIN, TAB [place] 3 Polyunsat Fatty Acids (Fish Oil 1,000 mg Capsule) 1,000 Mg Cap 1000 MG PO DAILY, CAP Omeprazole (Omeprazole) 40 Mg Capsule.dr 40 MG PO DAILY, CAP Simvastatin (Simvastatin) 40 Mg Tablet 40 MG PO HS, TAB SILVIA THORNTON MD FACP [facility] CCDS Sep 20, 2021 11:54
[2021-09-20] MEDS ORDERED: PATIENT MAY USE OWN MEDS, ALL PO SCH (12:00)
--- NOTE | 2021-09-20 16:20 | CARDIAC CATHETERIZATION ---
DATE OF SERVICE: 09/20/2021 CARDIAC CATHETERIZATION REPORT The patient is a 76-year-old gentleman who has a history of coronary artery bypass surgery and ascending aortic aneurysm repair in 2011. He has been having more chest discomfort than usual. He has had more shortness of breath. Cardiac catheterization was carried out today after having obtained an informed consent. DESCRIPTION OF PROCEDURE: He was brought to the cardiac catheterization laboratory in a fasting state. Right groin was prepared and draped in the usual sterile fashion. Lidocaine 1% was used for local anesthesia. Modified Seldinger technique was used to advance a 5-Albanian sheath in the right femoral artery. A 5-Albanian JL4 catheter for left coronary angiography, 5-Albanian JR4 catheter for right coronary angiography, 5-Albanian ROSA ISELA catheter was used for angiography of the left internal mammary artery graft to the left anterior descending. A 5-Albanian pigtail catheter was used for aortic root angiography. Left heart catheterization was not performed. This was to conserve contrast, given the patient's baseline renal insufficiency. Vigorous perioperative hydration was carried out beginning before the procedure, continuing during the procedure, and continuing after the procedure. This was to reduce the risk of contrast nephropathy. At the end of the procedure, angiography of the right femoral artery was carried out through the sheath and Mynx was used to achieve hemostasis. He tolerated the procedure well. CORONARY ANGIOGRAPHY: Left main coronary artery exhibits a patent stented segment in its proximal and mid portion. The mid right coronary artery has severe stenosis. The distal right coronary artery is protected by a patent left internal mammary artery graft. There is severe disease of small caliber septal and diagonal branches. Left circumflex artery has severe ectasia in its mid portion. The branches of the left circumflex arteries appear intact. The right coronary artery is small and nondominant. It has mild to moderate diffuse disease. Saphenous vein graft to left circumflex, he is known to have had a saphenous vein graft to the left circumflex that is occluded at its ostium. Angiography of the left internal mammary artery graft. Left internal mammary artery graft, left anterior descending artery is widely patent and free of significant disease. AORTIC ROOT ANGIOGRAPHY: Aortic root angiography indicated preserved aortic root, status post ascending aortic aneurysm repair in 2011. At the upper end of the aneurysm repair, there appears to be moderate stenosis (at the site of the junction of the aneurysm repair and the ascending aorta). There did not appear to be significant aortic regurgitation. The saphenous vein graft to the left circumflex artery was not found to be patent. CONCLUSIONS: 1. Severe mid vessel disease of the left anterior descending. The distal vessel is protected by a patent left internal mammary artery graft. The proximal left anterior descending artery has a patent stent with moderate diffuse disease of the proximal and mid left anterior descending. Small caliber branches of the left anterior descending artery have severe diffuse disease. 2. The left circumflex artery is severely ectatic in its mid portion. A graft into the left circumflex artery is occluded. All branches of the left circumflex artery do appear intact. 3. Right coronary artery is small and dominant and has moderate diffuse disease. 4. Moderate stenosis of the ascending aorta at the site of the junction of the aneurysm repair of 2012 and the ascending aorta. DISCUSSION AND RECOMMENDATIONS: Based on the results of the study, it appears appropriate to continue a conservative approach. Risk factor modification has been reviewed. Current regimen is being continued. Outpatient followup is advised. Job ID: [id number] DocumentID: [id number] Dictated Date: 09/20/2021 12:02:47 Special Collections Librarian Date: 09/20/2021 16:19:42 Dictated By: SILVIA THORNTON MD, MA, FACP, FACC, MTDD
== END 2021-09-20 17:00 | disposition home or self-care (01) ==
LOC: CATH 10:01 → SDC 12:15 → CATH 17:00
PROVIDERS: ATTEND Internal Medicine Cardiovascular Disease
DX: R07.89 Other chest pain (principal); I25.10 Atherosclerotic heart disease of native coronary artery without angina pectoris; I70.0 Atherosclerosis of aorta; G47.33 Obstructive sleep apnea (adult) (pediatric); R53.83 Other fatigue; I44.2 Atrioventricular block, complete; I44.1 Atrioventricular block, second degree; I48.0 Paroxysmal atrial fibrillation; K21.9 Gastro-esophageal reflux disease without esophagitis; I13.10 Hypertensive heart and chronic kidney disease without heart failure, with stage 1 through stage 4 chronic kidney disease, or unspecified chronic kidney disease; R73.01 Impaired fasting glucose; N18.9 Chronic kidney disease, unspecified; E78.2 Mixed hyperlipidemia; I65.29 Occlusion and stenosis of unspecified carotid artery; Z95.1 Presence of aortocoronary bypass graft; Z98.890 Other specified postprocedural states; Z79.899 Other long term (current) drug therapy; Z79.82 Long term (current) use of aspirin; Z79.01 Long term (current) use of anticoagulants; Z87.891 Personal history of nicotine dependence; Z95.0 Presence of cardiac pacemaker; Z86.711 Personal history of pulmonary embolism
CPT/HCPCS: 80053; 80061; 85027; 85610; 85730; 87081; 93455; 93567; C1894; 36415

== ENCOUNTER → 2022-02-20 | Outpatient (CLI) | payer MEDICARE ==
[~2022-02-20] MED LIST changes: +MAGN250T13 PO
== END ==
LOC: CARD 09:32
PROVIDERS: ATTEND Internal Medicine Cardiovascular Disease
DX: I08.0 Rheumatic disorders of both mitral and aortic valves (principal)
CPT/HCPCS: 93306

== ENCOUNTER 2022-11-07 09:44 | Day surgery (SDC) | payer MEDICARE ==
[~2022-11-07] VITALS: Ht 180.3 cm; Wt 112.9 kg
[2022-11-07] VITALS (9 sets, daily range): BP systolic 111–169; BP diastolic 78–98
[2022-11-07] MEDS ORDERED: NS IV 1000 ML 1,000 ML IV SCH ×2 (10:00→13:15)
[2022-11-07 10:32] LABS: HEMATOCRIT 47 % (40-54); HEMOGLOBIN 15.4 g/dL (13.3-17.7); MEAN CORPUSCULAR HEMOGLOBIN 30 pg (25-34); MEAN CORPUSCULAR HGB CONC 33 g/dL (32-36); MEAN CORPUSCULAR VOLUME 91 fL (80-99); MEAN PLATELET VOLUME 10.6 fL (9.0-12.2); PLATELET COUNT 250 10^3/uL (130-400); WHITE BLOOD COUNT 9.4 10^3/uL (4.3-11.0)
[2022-11-07 10:53] LABS: INR 1.1 (0.8-1.4); PROTHROMBIN TIME PATIENT 14.3 SEC (12.2-14.7)
[2022-11-07 11:00] LABS: ALBUMIN 4.4 GM/DL (3.2-4.5); BILIRUBIN,TOTAL 0.9 MG/DL (0.1-1.0); CALCIUM 8.4 MG/DL (8.5-10.1); CREATININE SERUM 1.44 MG/DL (0.60-1.30); TOTAL PROTEIN 8.2 GM/DL (6.4-8.2)
[2022-11-07] MEDS ORDERED: VANCOMYCIN 1000 MG/VIAL ONE (11:00)
[2022-11-07] MEDS ORDERED: NS (IVPB) 250 ML ONE (11:00)
[2022-11-07] MEDS ORDERED: MIDAZOLAM 5 MG/5 ML (VERSED) VIAL ONE (11:14)
[2022-11-07] MEDS ORDERED: fentaNYL INJ 100 MCG/2 ML AMP ONE (11:14)
[2022-11-07] MEDS ORDERED: VANCOMYCIN INJECTION 1,000 MG in NS (IVPB) 250 ML IV ONE (11:15)
[2022-11-07] MEDS ORDERED: diphenhydrAMINE 50 MG/ML INJ (BENADRYL) ONE (11:36)
[2022-11-07] MEDS ORDERED: LIDOCAINE 1% INJ 20 ML VIAL ONE (11:42)
[2022-11-07] MEDS ORDERED: NS IV 1000 ML 2,000 ML ONE (11:42)
[2022-11-07] MEDS ORDERED: HEParin (CATH LAB) 1,000 ML IV ONE (11:43)
--- NOTE | 2022-11-07 13:01 | Cardiac Procedure Note-CS/ASA ---
Pre-Procedure Note Pre-Op Procedure Note Date of Available H&P: Nov 02, 2022 Date H&P Reviewed: Nov 07, 2022 Time H&P Reviewed: 11:00 History & Physical: No changes noted Pre-Operative Diagnosis: dual chamber pacemaker at [facility] Conscious Sedation Pre-Proced ASA Score 3 For ASA 3 and 4: Consider anesthesia and medical clearance. Also, for patients with a history of failed moderate sedation consider anesthesia. Airway Lungs Heart ASA score ASA 1: a normal healthy patient ASA 2: a patient with a mild systemic disease (mid diabetes, controlled hypertension, obesity ASA 3: a patient with a severe systemic disease that limits activity (angina, COPD, prior Myocardial infarction) ASA 4: a patient with an incapacitating disease that is a constant threat to life (CHF, renal failure) ASA 5: a moribund patient not expected to survive 24 hrs. (ruptured aneurysm) ASA 6: a declared brain- patient whose organs are being harvested. For emergent operations, add the letter E after the classification Mallampati Classification Grade 2 Sedation Plan Analgesia, Amnesia, Plan communicated to team members The patient is an appropriate candidate to undergo the planned procedure, sedation, and anesthesia. The patient immediately re-assessed prior to indication. SILVIA THORNTON MD FACP [facility]S Nov 07, 2022 13:01
[2022-11-07] MEDS ORDERED: CIPR-225 PO (13:06)
--- NOTE | 2022-11-07 13:09 | Discharge Inst-Post Device ---
Discharge Inst-Post Device Follow up/Plan F/u for wound check at Dr Lane's on Sunday11/10/22 F/u for doctor visit in one month Hold Bhanu today. Resume tomorrow Heart Healthy Diet Do not push and pull heavy objects for 1 week Activity as tolerated. No driving for 3 days Leave dressing on until follow up at the office. SILVIA LANE MD FACP [facility] CCDS Nov 07, 2022 13:09
[2022-11-07] MEDS ORDERED: PATIENT MAY USE OWN MEDS, ALL PO SCH (13:15)
--- NOTE | 2022-11-07 17:14 | Diagnostic Imaging Report ---
INDICATION: Pacemaker generator change Frontal chest obtained at 03:30 p.m. There is no prior study for comparison. There is cardiomegaly and poststernotomy change. There is a dual-lead pacemaker device in place with battery pack over the left chest wall. There is no focal infiltrate, pneumothorax or pleural fluid. IMPRESSION: Cardiomegaly and postop changes with pacemaker in place. No focal infiltrate, pneumothorax or pleural fluid. Dictated by: Dictated on workstation # [id number]
--- NOTE | 2022-11-07 20:12 | OPERATIVE REPORT ---
DATE OF SERVICE: 11/07/2022 PREOPERATIVE DIAGNOSIS: Pacemaker at elective replacement indicator. POSTOPERATIVE DIAGNOSIS: Pacemaker at elective replacement indicator. PROCEDURE: Dual chamber pacemaker pulse generator change. ESTIMATED BLOOD LOSS: Less than 10 mL. INDICATIONS: The patient is a 77-year-old gentleman who has a history of intermittent complete heart block and has a dual chamber pacemaker in place that has reached elective replacement indicator. Informed consent was obtained for generator change. DESCRIPTION OF PROCEDURE: [facility] The left prepectoral area was prepared and draped in the usual sterile fashion. Sharp and blunt dissection was used to open the pacemaker pocket and the pacemaker was removed from the pocket and detached from the leads. The leads were attached to a new pacemaker. The pacemaker that was removed is Broadersheettronic product ADDR01 with serial number [id number]. Its implant date was 01/11/2012. The new pacemaker is Medtronic model W1DR01 with serial number [id number]. The pacemaker and the leads are functioning normally. P-wave amplitude is 2 millivolts. Right atrial pacing impedance is 361 ohms and the atrial capture threshold is 0.75 volts at 0.4 milliseconds. R waves could not be measured due to lack of an adequate underlying rhythm. The pacing impedance is 418 ohms. Ventricular capture threshold was 1.25 volts at 0.4 milliseconds[address] the pacemaker and the leads in the pacemaker pocket, the pocket was thoroughly irrigated with normal saline. Good hemostasis was assured. The leads were placed in the pocket and the pocket was closed in 2 layers using 3.0 Vicryl. He tolerated the procedure well. Job ID: [id number] DocumentID: [id number] Dictated Date: 11/07/2022 13:14:46 Delphi Developer Date: 11/07/2022 20:10:00 Dictated By: SILVIA THORNTON MD; STAN; FACP; FACC;
== END 2022-11-07 17:15 | disposition home or self-care (01) ==
LOC: CATH 09:44
PROVIDERS: ATTEND Internal Medicine Cardiovascular Disease
DX: Z45.010 Encounter for checking and testing of cardiac pacemaker pulse generator [battery] (principal); I44.2 Atrioventricular block, complete; E66.9 Obesity, unspecified; I48.0 Paroxysmal atrial fibrillation; I25.10 Atherosclerotic heart disease of native coronary artery without angina pectoris; I71.40 Abdominal aortic aneurysm, without rupture, unspecified; N18.9 Chronic kidney disease, unspecified; E78.5 Hyperlipidemia, unspecified; R73.01 Impaired fasting glucose; Z68.34 Body mass index [BMI] 34.0-34.9, adult; Z86.711 Personal history of pulmonary embolism; Z87.891 Personal history of nicotine dependence; Z95.1 Presence of aortocoronary bypass graft
CPT/HCPCS: 33228; 71045; 80053; 80061; 85027; 85610; 85730; 87081; 93005; C1785; 36415